=== PATIENT | male | born 1925 | race Caucasian/White ===

== ENCOUNTER 2017-04-10 11:04 | Observation (INO) | payer OTHER ==
--- NOTE | 2017-04-10 11:09 | EDPHY ---
H & P Time Seen by Provider: 04/10/17 11:09 HPI/ROS: CHIEF COMPLAINT: "Not acting right " HISTORY OF PRESENT ILLNESS: History from EMS, they were called because the thought the patient was not "acting right "and had a 1st episode at 7:00 a.m. which was only a few minutes and then a 2nd episode the did not resolve. When they arrived he was slumped over a chair and had decreased responsiveness although the [place] stroke scale was negative. His 1st blood pressure was 80 systolic and he was given IV fluids and his blood pressure came up his mental status resolved. Currently only complains of being a little bit dizzy. REVIEW OF SYSTEMS: Eye: no change in vision ENT: no sore throat Cardiac: no chest pain or syncope Pulmonary: no cough or SOB Abdomen: no vomiting, diarrhea, abdominal pain Musculoskeletal: no back pain or neck pain Skin: no rash Neuro: no headache Constitutional: no fever : no urinary symptoms A comprehensive 10 point review of systems is otherwise negative aside from elements mentioned in the history of present illness. PAST MEDICAL HISTORY: Atrial fibrillation, hypertension, bypass graft surgery Social history: Daily alcohol, denies tobacco, General Appearance: Alert and conversant, cooperative. Eyes: No scleral icterus. Extraocular motion intact, pupils reactive. ENT, Mouth: No tongue laceration or abrasion. Respiratory: Normal respiratory effort, breath sounds equal, lungs are clear to auscultation. Cardiovascular: Irregular rate and rhythm. Gastrointestinal: Abdomen is soft and non tender. Neurological: Alert, face symmetric, normal motor and sensory in extremities. He can lift each leg independently off the bed, no pronator drift, normal finger -to-nose bilaterally. Speech fluent. Skin: Warm and dry, no rashes. Musculoskeletal: No peripheral edema. Psychiatric: Not agitated. Emergency Department course/MDM: Paramedics report hypotension and mental status resolving with increased blood pressure. He does not have focal neurologic exam now. More likely to be hypotension related syncope at home an acute stroke seizure or other primary neurologic cause. Noncontrast head CT, labs to include troponin chemistries, EKG. 1245: Results discussed with patient and family, is currently asymptomatic, the says he is anticoagulated on Eliquis so no aspirin. Admission for syncope and elevated troponin. The at this time also tells me that he had a 3rd episode last night as well. Constitutional: Initial Vital Signs Temperature (C) 36.6 C 04/10/17 11:06 Heart Rate 80 04/10/17 11:06 Respiratory Rate 20 04/10/17 11:06 Blood Pressure 116/67 04/10/17 11:06 O2 Sat (%) 90 L 04/10/17 11:06 O2 Delivery Mode Nasal Cannula O2 (L/minute) 2 Allergies/Adverse Reactions: No Known Allergies Allergy (Verified 04/10/17 11:17) Home Medications: Medication Instructions Recorded Aspirin [Aspirin 81mg] 81 mg PO DAILY 06/10/10 Lipitor 40mg 06/10/10 Metoprolol Succinate Xr [Toprol Xl] 25 mg PO DAILY 06/10/10 Oxybutynin Chloride [Ditropan] mg PO 06/10/10 Ramipril [Altace] mg PO DAILY 06/10/10 amLODIPine BESYLATE [Norvasc 5mg] 5 mg PO DAILY 06/10/10 Atorvastatin Calcium 04/10/17 Hydroxyurea 04/10/17 LYRICA 04/10/17 Tamsulosin HCl 04/10/17 Medical Decision Making - Diagnostics EKG Interpretation: 12-lead EKG interpreted by me; official reading is in trace master. My interpretation is atrial fibrillation rate 80 with right bundle branch block. Imaging Results: Imaging Impressions Head CT 04/10/17 11:18 Impression: Advanced senescent features, with no acute intracranial abnormality identified on this unenhanced CT evaluation. If there is further clinical concern regarding the patient's symptoms, MR imaging is suggested, if not otherwise contraindicated. Findings were discussed with JOSSELYN WILSON MD at 11:50, on 04/10/2017. Differential Diagnosis: Differential diagnosis considered for altered mental status including but not limited to hypoglycemia, infectious process, electrolyte abnormality, head injury and intoxicants. Consult/Admit Bed Type: [place] [address] - Data Points Laboratory Results: Laboratory Results 04/10/17 11:05 04/10/17 11:05 04/10/17 04/10/17 11:05 11:05 WBC 6.85 10^3/uL 10^3/uL (3.80-9.50) RBC 3.49 10^6/uL L 10^6/uL (4.40-6.38) Hgb 12.8 g/dL L g/dL (13.7-17.5) Hct 36.7 % L % (40.0-51.0) MCV 105.2 fL H fL (81.5-99.8) MCH 36.7 pg H pg (27.9-34.1) MCHC 34.9 g/dL g/dL (32.4-36.7) RDW 15.4 % H % (11.5-15.2) Plt Count 403 10^3/uL H 10^3/uL (150-400) MPV 11.1 fL fL (8.7-11.7) Neut % (Auto) 68.6 % % (39.3-74.2) Lymph % (Auto) 15.5 % % (15.0-45.0) [place] % (Auto) 13.7 % H % (4.5-13.0) Eos % (Auto) 0.6 % % (0.6-7.6) Baso % (Auto) 1.3 % % (0.3-1.7) Nucleat RBC Rel Count 0.0 % % (0.0-0.2) Absolute Neuts (auto) 4.70 10^3/uL 10^3/uL (1.70-6.50) Absolute Lymphs (auto) 1.06 10^3/uL 10^3/uL (1.00-3.00) Absolute Monos (auto) 0.94 10^3/uL H 10^3/uL (0.30-0.80) Absolute Eos (auto) 0.04 10^3/uL 10^3/uL (0.03-0.40) Absolute Basos (auto) 0.09 10^3/uL 10^3/uL (0.02-0.10) Absolute Nucleated RBC 0.00 10^3/uL 10^3/uL (0-0.01) Immature Gran % 0.3 % % (0.0-1.1) Immature Gran # 0.02 10^3/uL 10^3/uL (0.00-0.10) Sodium 141 mEq/L mEq/L (134-144) Potassium 4.0 mEq/L mEq/L (3.5-5.2) Chloride 102 mEq/L mEq/L (97-110) Carbon Dioxide 25 mEq/l mEq/l (22-31) Anion Gap 14 mEq/L mEq/L (8-16) BUN 18 mg/dL mg/dL (7-23) Creatinine 1.1 mg/dL mg/dL (0.7-1.3) Estimated GFR > 60 Glucose 172 mg/dL H mg/dL (70-100) Calcium 9.5 mg/dL mg/dL (8.5-10.4) Troponin I 0.075 ng/mL H ng/mL (0.000-0.034) Departure - Departure Disposition: [facility] Inpatient Acute Clinical Impression: Syncope, Troponin level elevated Condition: Good Referrals: Patient,NotPresent [Unknown] - As per Instructions
[2017-04-10 11:30] LABS: PLATELET COUNT 403 10^3/uL (150-400)
[2017-04-10] MEDS ORDERED: ONDANSETRON DISINTEGRATING 4 MG TAB PO PRN (13:20)
[2017-04-10] MEDS ORDERED: ONDANSETRON 4 MG/2 ML VIAL IVP PRN (13:20)
[2017-04-10] MEDS ORDERED: ACETAMINOPHEN 325 MG TAB PO PRN (13:20)
[2017-04-10] MEDS ORDERED: NS 500 ML IV ONE ×2 (13:20→16:58)
--- NOTE | 2017-04-10 13:40 | CPEKG ---
Heart Rate: 80 RR Interval: 750 QRSD Interval: 182 QT Interval: 444 QTC Interval: 513 QRS [place]: 84 T Wave [place]: -51 EKG Severity - ABNORMAL ECG - EKG Impression: ATRIAL FIBRILLATION, V-RATE 61-99 EKG Impression: RIGHT BUNDLE BRANCH BLOCK Electronically Signed By: Mauricio Lundberg 10-Apr-2017 14:21:38
--- NOTE | 2017-04-10 15:53 | GHP ---
[f rep st] HISTORY AND PHYSICAL DATE OF ADMISSION: 04/10/2017 CHIEF COMPLAINT: Gait instability and lightheadedness, and per family not functioning well. HISTORY OF PRESENT ILLNESS: An 89-year-old male with a history of coronary artery disease status pos t CABG, as well as atrial fibrillation on anticoagulation who presents after two episodes of stumblin g ,unstable gait requiring himself to brace himself for stabilize himself on the wall. Fist episode occurred the evening prior to presentation. The patient was able to stabilize himself and then descr ibes that the symptoms of weakness and instability did resolve. The patient went to sleep, had a norm al night sleep, woke up in the morning feeling quite well and then while sitting at the breakfast tab le, david to head out of the room and had another episode of gait instability requiring himself to sta bilize himself. During this episode, his notes that he was behaving and speaking unusually, ther efore, called for EMS and evaluation. The patient denies any preceding chest pain, palpitations, shor tness of breath, headache, vision changes. Has had upper respiratory symptoms that have included a c ough and congestion. Denies any nausea, vomiting, abdominal pain, changes in his bowel habits, dysuri a, hematuria. Has chronic lower extremity edema which he reports has been unchanged. Denies any numbn ess, tingling or focal neurologic deficits. The patient was transported by EMS and noted to be marke dly hypotensive en route with systolic blood pressures in the 80s. At this time, as not appropriately responsive to external stimulation. His mentation improved after fluid resuscitation. PAST MEDICAL HISTORY: 1. Coronary artery disease status post coronary artery bypass grafting x5. 2. History of transient ischemic attack. 3. Atrial fibrillation, on anticoagulation. 4. 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 5. Alcohol abuse. 6. Hypertension. 7. Benign prostatic hypertrophy. 8. Hyperlipidemia. SOCIAL HISTORY: Negative for tobacco, he has a remote history. Negative for marijuana or illicit linda gs. Alcohol intake he reports is a 6-pack of beers a day. They typically begin at lunch. Social his tory is positive for cerebral vascular disease and heart disease. ADVANCED DIRECTIVES: The patient is full cor, full tube. His would be his medical decision-kristen er. REVIEW OF SYSTEMS: A 10-point review of systems is negative with the exception of that reported in t he HPI. PHYSICAL EXAMINATION: VITAL SIGNS: Blood pressure is 116/67, heart rate 80, respiratory rate 20, 90 % on room air, 36.6. GENERAL: This is an elderly appearing male in no acute distress. HEENT: Nota ble for dry mucous membranes. Eye exam is negative for any icterus. CARDIAC: Heart sounds are dist ant and irregular. No clearly audible murmurs on my examination. PULMONARY: Good respiratory effort . Clear to auscultation bilaterally. GASTROINTESTINAL: Positive bowel sounds. ABDOMEN: Soft. MUSC ULOSKELETAL: The patient has trace symmetric lower extremity edema. SKIN: Exam is negative for any rashes. NEUROLOGIC: He is alert and oriented x3. PSYCHIATRIC: He is pleasant and cooperative on int erview and examination. DATA: White count 6.8, hematocrit 36.7, slightly below recent baseline. MCV 105. Platelets of 403. Creatinine 1.1. Sodium of141. Troponin is 0.075. EKG, which I personally reviewed and interpreted, shows atrial fibrillation with right bundle branch block morphology. No acute ST-T changes. Chest x-ray, which I personally reviewed and interpreted, shows cardiomegaly with prominent lung ivelisse ings. No clear infiltrates or edema. ASSESSMENT AND PLAN: This is an 89-year-old male, presenting with presyncope. 1. Presyncope. Suspect based on history, the patient's symptoms are related to dehydration. On revi ew of his fluid intake, it sounds as if the patient drinks coffee all morning and beer all afternoon and evening with no other fluids in between. The patient has had a recent upper respiratory infection and potentially increase in sensible losses. My suspicion for acute myocardial infarction or cardia c dysrhythmia is low at this time. Will admit the patient to telemetry ,check an echocardiogram to v erify that his ejection fraction has not changed and fluid resuscitation with normal saline. Will ho ld the patient's blood pressure medications overnight until we feel he has been adequately hydrated. 2. Indeterminate troponin. Patient has extensive cardiac history without active chest pain or keith rning EKG. Will recheck a troponin this afternoon to verify that it is not rising. Again, will be sis cking a transthoracic echocardiogram to look for any new segmental wall motion abnormalities in mitesh miguel to his echocardiogram in clinic in 2013. 3. Alcohol abuse. The patient drinks heavily on a daily basis and it sounds like this may even be c utting back from previous. We did discuss the importance of moderation in alcohol intake. The patient does not have any intention of quitting drinking at this time. Will write him for a beer this [place] to avoid any alcohol withdrawal. 4. Macrocytic anemia. This does appear to be progressive over time. Suspect this may be related to his alcohol intake. He has had B12 checked in the past. I will not work this up further at this critical access hospital. The patient is noted however to have n elevated RDW. Will add iron studies to his admission labs. 5. Thrombocytosis. I suspect that this is likely why the patient is on hydroxyurea. The family can only describe that he has a sticky blood condition. The patient is followed in the outpatient setting by Dr. Ruano. Will continue the hydroxyurea at outpatient dosing. 6. Atrial fibrillation. This does not appear to be a new diagnosis for this patient and I can only assume this is why he is on anticoagulation. Will continue his Eliquis for now. He is currently rate controlled on his home dosing of metoprolol. 7. Prophylaxis. Patient is on Eliquis. DIET: Cardiac. DISPOSITION: I expect less than 2 midnights if the patient responds well to fluid resuscitation and rules out. I have discussed the case with the emergency room physician. Patient will be triaged to the medical-surgical floor for care. /[id number]/MODL
--- NOTE | 2017-04-10 16:55 | ECHO ---
[email or web address] [address] [address] Main: [phone] Fax: [email or web address] Echocardiogram Name: MARIJA ESCAMILLA MR#: [id number] Study Date: 04/10/2017 Study Time: 03:35 PM Date of : 1925 Age: 89 year(s) Height: 180.3 cm (71 in.) Weight: 89.81 kg (198 lb.) BSA: 2.1 m2 Gender: Male Examination: Echo Indication: Pre syncope/hx CABG/a fib/HTN Image Quality: Contrast: Requested by: Patsy Garcia BP: 114 mmHg/67 mmHg Heart Rate: Rhythm: Indication: Pre syncope/hx CABG/a fib/HTN Procedure Staff Railroad Car Cleaner: Mili Kraus Reading Physician: James Rodríguez Requesting Provider: Conclusions: Mildly dilated left ventricle. The ejection fraction is estimated to be 45 - 50 %. LV septal wall is consistent with a conduction abnormality. LV inferior/inferolateral martin appear hypokinteic. . Mildly dilated right ventricle. Mild mitral annular calcification. Mild to moderate mitral regurgitation. The aortic valve is tri-leaflet. Moderate aortic cusp calcification is present. Mild aortic valve regurgitation is present. The pulmonary artery pressure is mildly increased. Measurements: Chambers Valvular Assessment AV/MV Valvular Assessment TV/PV Normal Normal Normal Name Value Range Name Value Range Name Value Range IVSd (2D): 1.4 cm (0.6 cm-1.1 AV Vmax: 1.65 m/s (1 m/s-1.7 TR Vmax: 3.04 mm/s ( - ) cm) m/s) TR PGmax: 37 mmHg ( - ) LVDd (2D): 6.3 cm (4.2 cm-5.9 AV maxP mmHg ( - ) syst. PAP: 47 mmHg ( - ) cm) AR (PHT): 1066 ms ( - ) LVDs (2D): 4.7 cm (2.1 cm-4 MV E Vmax: 1.07 m/s ( - ) cm) MV A Vmax: 0.25 m/s ( - ) LVPWd (2D): 0.8 cm (0.6 cm-1 MV E/A: 4.28 ( - ) cm) LVEF (2D): 48 (>=54 %) EF Range: 45 - 50 % RVDd(2D): 4.5 cm (1.9 cm-3.8 cmmm) Continued Measurements: Patient: MARIJA ESCAMILLA Study Date: 04/10/2017 Page 1 of 2 03:35 PM Chambers Valvular Assessment AV/MV Valvular Assessment TV/PV Name Value Name Value Name Value LADs: 4.3 cm MV E' Septal: 0.08 m/s CVP (est.): 10 mmHg LADs Lon.7 cm MV E/E' Septal: 14.10 LA Area: 31.5 cm2 MV E/E' Lateral: 10.50 AR Vmax: 3.87 cm/s Additional Vessels Name Value Ao Ascendin.8 cm Findings: Left Ventricle: Mildly dilated left ventricle. No LV hypertrophy. Normal global systolic LV function. The ejection fraction is estimated to be 45 - 50 %. No regional wall motion abnormality. Normal diastolic LV function. LV septal wall is consistent with a conduction abnormality. LV inferior/inferolateral martin appear hypokinteic. . Right Ventricle: Mildly dilated right ventricle. Left Atrium: The left atrium is moderately dilated. Right Atrium: The right atrium is severely dilated. Mitral Valve: Mild mitral annular calcification. Mild to moderate mitral regurgitation. Aortic Valve: The aortic valve is tri-leaflet. CA+. Moderate aortic cusp calcification is present. Mild aortic valve regurgitation is present. Tricuspid Valve: The tricuspid valve is normal in appearance and function. Mild tricuspid regurgitation is present. The pulmonary artery pressure is mildly increased. Pulmonic Valve: The pulmonic valve is normal in appearance and function. Mild pulmonic valve regurgitation is noted. Aorta: The aorta is normal. Pericardium: No pericardial effusion. (No Signature Object) Patient: MARIJA ESCAMILLA Study Date: 04/10/2017 Page 2 of 2 03:35 PM [id number]
[2017-04-10] MEDS: IPRATROPIUM/ALBUTEROL 3 ML DEYVIAL IH SCH (17:17)
[2017-04-10] MEDS ORDERED: BEER 1 EACH EA PO SCH (19:00)
[2017-04-10] MEDS: APIXABAN 5 MG TAB PO SCH (20:06)
[2017-04-10] MEDS: HYDROXYUREA 500 MG CAP PO SCH (20:06)
[2017-04-10] MEDS ORDERED: BENZONATATE 100 MG CAP PO PRN (23:29)
[2017-04-10] MEDS ORDERED: GUAIFENESIN/DM 10 ML UDCUP PO PRN (23:29)
[2017-04-11] MEDS: IPRATROPIUM/ALBUTEROL 3 ML DEYVIAL IH SCH ×2 (00:13→05:32)
[2017-04-11 04:35] LABS: PLATELET COUNT 318 10^3/uL (150-400)
[2017-04-11 07:49] VITALS: BP 117/71; RESP 13; TEMP 97.5; O2SAT 91
[2017-04-11] MEDS: APIXABAN 5 MG TAB PO SCH (08:59)
[2017-04-11] MEDS ORDERED: ATORVASTATIN CALCIUM 40 MG TAB PO SCH (09:00)
[2017-04-11] MEDS ORDERED: OXYBUTYNIN 5 MG EXT REL TAB PO SCH (09:00)
[2017-04-11] MEDS ORDERED: ENOXAPARIN 30 MG/0.3 ML SYR SC SCH (09:00)
[2017-04-11] MEDS ORDERED: PREGABALIN 50 MG CAP PO SCH (09:00)
[2017-04-11] MEDS ORDERED: OXYBUTYNIN CHLORIDE 15 MG PO SCH (09:00)
[2017-04-11] MEDS ORDERED: TAMSULOSIN HCL 0.4 MG CAP PO SCH (09:00)
[2017-04-11] MEDS: HYDROXYUREA 500 MG CAP PO SCH (09:00)
--- NOTE | 2017-04-11 09:24 | HOSPPROG ---
Hospitalist Progress Note Assessment/Plan: #RSV URI: supportive care. Stable on RA #Indeterminate troponin: suspect due to acute illness. Denies CP. TTE shows EF 45%, no WMA; no significant change since ec2013 #CAD: s/p 5V CABG #Presyncope: due to dehydration, acute illness. No significant changes on TTE/ #Permanent a fib: followed by Dr. Diaz. Arya #Etoh dependence: no signs of w/d #Disp: DC today Subjective: no CP or SOB. No dizziness Objective: Vital Signs Temp Pulse Resp BP Pulse Ox 36.4 C 100 13 117/71 91 L 04/11/17 07:48 04/11/17 07:48 04/11/17 07:48 04/11/17 07:48 04/11/17 07:48 Laboratory Results 04/11/17 04:05 04/11/17 04:05 04/10/17 04/11/17 04/12/17 05:59 05:59 05:59 Intake Total 1570 Output Total 225 Balance 1345 - Physical Exam Constitutional: no apparent distress Eyes: PERRL Ears, Nose, Mouth, Throat: moist mucous membranes Cardiovascular: regular rate and rhythym, No edema Respiratory: expiratory wheeze Gastrointestinal: normoactive bowel sounds, soft, non-tender abdomen Genitourinary: no bladder fullness Musculoskeletal: full muscle strength Neurologic: AAOx3, CN II-XII Intact Psychiatric: interacting appropriately ICD10 Worksheet Patient Problems: Problems Problem Status Onset Syncope Acute Troponin level elevated Acute
--- NOTE | 2017-04-11 10:22 | GDS ---
[f rep st] DISCHARGE SUMMARY CHIEF COMPLAINT: 1. Gait instability like presyncope. 2. RSV upper respiratory infection. 3. History of CAD s/p CABG 5-vessel. 4. History of transient ischemic attack. 5. Permanent atrial fibrillation 6. Essential thrombocytosis. 7. Alcohol abuse. 8. Hypertension,. 9. Benign prostatic hyperplasia. 10. Hyperlipidemia. HISTORY OF PRESENT ILLNESS: An 89-year-old male with history of coronary disease status post 5 vessel CABG, permanent atrial fibrillation on JOSEPH, presenting with 2 episodes of stumbling, unstable gait, required himself to brace himself to prevent a fall. First episode occurred the evening prior to presentation. He felt very weak and unstable, but did not fall. He went to sleep without any issues and felt quite well, but then at breakfast he stood up to walk out the room and had another episode of gait instability. He denied any preceding chest pain, palpitations, shortness of breath, headaches, vision changes. He has had a dry cough and congestion. No nausea, vomiting, diarrhea. HOSPITAL COURSE BY PROBLEM: 1. Acute RSV URI: He is stable on room air. Recommend supportive care with plenty of fluids, cough suppressant. 2. Presyncope: Likely secondary to acute illness and mild dehydration. He was rehydrated here. He had a mild indeterminate troponin, but echocardiogram was unchanged from 2014 with an EF of 45%-50%. No wall motion abnormalities. We will not pursue further cardiac evaluation at this time. 3. Alcohol abuse: He was provided alcohol with meals. 4. Macrocytic anemia: Likely secondary to chronic alcohol use. He is counseled on cessation. 5. Thrombocytosis: Likely essential given the fact that he is on hydroxy urea. He is followed by Dr. Ruano and will continue this. 6. Permanent atrial fibrillation: He is in normal sinus rhythm. He is on Eliquis. 7. Decondition/unstable gait: This is likely secondary to acute illness and dehydration. He has been evaluated by PT and OT who recommend he use his walker 29/10 at home. DISPOSITION: Patient is stable for discharge home. His son will be staying with him for the next couple days. He is advised to use his walker and cane. MEDICATIONS: No new medications. FOLLOW UP: 1. PCP. 2. Cardiology. /[id number]/MODL MTDD
[2017-04-11 10:33] VITALS: PULSE 107
--- NOTE | 2017-04-11 15:27 | ASDISCHSUM ---
Discharge Information Plan Status:Home with No Needs Medically Cleared to Leave:04/10/2017 Discharge Date:04/11/2017 10:45 AM CM D/C Disposition: ADT D/C Disposition:Home, Routine, Self-Care Projected Discharge Date:04/11/2017 12:00 AM Transportation at D/C: Discharge Delay Reason: Follow-Up Date:04/11/2017 12:00 AM Discharge Slot: Final Diagnosis: Placement Information Patient Contact Information Contact Name:JEISON Relationship: Address:[address] Work Phone: City:[place] Alternate Phone: State/Zip Code:[place] [address] Email: Financial Information Financial Class: Primary Plan Desc:MEDICARE OUTPATIENT Primary Plan Number:[id number] Secondary Plan Desc:[facility] Secondary Plan Number:[id number] Assessment Information LACE LACE Acuity / Level of Care Answers: Was the patient admitted to hospital via the emergency department? Yes: Emergency dept visits in Answers: 1 last 6 months Score: 4 Date Signed: 04/10/2017 01:25 PM Electronically Signed By:Robyn Julio RN Intervention Information Intervention Type:*Condition Code 44 Date of Service:04/11/2017 03:17 PM Patient Type:Observation Staff Member:ESDRAS Haro Susan Hours: Discipline: Severity: Comment:
== END 2017-04-11 10:45 | disposition home or self-care (01) ==
LOC: EDUNIT# → INTOOBSV 12:44 → OBSVTOIN 12:44 → F2W 14:24
PROVIDERS: ADMIT Hospitalist; ATTEND Internal Medicine
DX: R55 Syncope and collapse (principal); R26.89 Other abnormalities of gait and mobility; J06.9 Acute upper respiratory infection, unspecified; B97.4 Respiratory syncytial virus as the cause of diseases classified elsewhere; E86.0 Dehydration; D53.9 Nutritional anemia, unspecified; I25.2 Old myocardial infarction; I48.2 Chronic atrial fibrillation; D47.3 Essential (hemorrhagic) thrombocythemia; I10 Essential (primary) hypertension; F10.20 Alcohol dependence, uncomplicated; N40.0 Benign prostatic hyperplasia without lower urinary tract symptoms; E78.5 Hyperlipidemia, unspecified; Z95.1 Presence of aortocoronary bypass graft; Z79.01 Long term (current) use of anticoagulants; Z86.73 Personal history of transient ischemic attack (TIA), and cerebral infarction without residual deficits
CPT/HCPCS: 70450; 71046; 93005; 93306; 97161; 97165; 97535; 99285; G0378; G8978; G8979; G8987; G8988; G8989; G0480

== ENCOUNTER 2017-06-14 01:22 | Observation (INO) | payer OTHER ==
[2017-06-14] MEDS ORDERED: ONDANSETRON 4 MG/2 ML VIAL IVP ONE (01:28)
--- NOTE | 2017-06-14 01:31 | EDPHY ---
H & P HPI/ROS: HPI CHIEF COMPLAINT: Epigastric abdominal pain HISTORY OF PRESENT ILLNESS: Patient is a 89-year-old male, resides locally in a private residence with his , called 911 because approximately an hour and half ago he developed pain in his abdomen. And chest. The pain is located epigastric region. Radiates out into his abdomen and chest. Denies shortness of breath. Pain is reproducible on exam when you press in his epigastric region. Of note he somewhat of a poor historian. He thinks the pain started an hour and half ago. He has not had any vomiting. Denies nausea. Denies shortness of breath. Denies lower abdominal pain. Currently rates his pain is 7/10. He received full-dose aspirin and 1 dose of nitroglycerin prior to arrival. Past Medical History: Coronary disease with CABG 5 vessel, TIA, AFib, alcohol abuse, hyperlipidemia, RSV, gait instability, BPH Past Surgical History: CABG Social History: Occasional alcohol use. Denies illicit drugs or tobacco. Family History: Noncontributory. ROS REVIEW OF SYSTEMS: A comprehensive 10 point review of systems is otherwise negative aside from elements mentioned in the history of present illness. Exam Constitutional appears elderly, frail, triage nursing summary reviewed, vital signs reviewed, awake/alert. Eyes normal conjunctivae and sclera, EOMI, PERRLA. HENT normal inspection, atraumatic, moist mucus membranes, no epistaxis, neck supple/ no meningismus, no raccoon eyes. Respiratory clear to auscultation bilaterally, normal breath sounds, no respiratory distress, no wheezing. Cardiovascular rate normal, regular rhythm, no murmur, no edema, distal pulses normal. Gastrointestinal tender palpation epigastric region, no peritoneal signs, no rebound, no guarding, normal bowel sounds, no distension, no pulsatile mass. Genitourinary no CVA tenderness. Musculoskeletal bilateral lower extremity pitting edema no midline vertebral tenderness, full range of motion, no calf swelling, no tenderness of extremities , no meningismus, good pulses, neurovascularly intact. Skin pink, warm, & dry, no rash, skin atraumatic. Neurologic awake, alert and oriented x 3, AAOx3, moves all 4 extremities equally, motor intact, sensory intact, CN II-XII intact, normal cerebellar, normal vision, normal speech. Psychiatric normal mood/affect. Heme/Lymph/Immune no lymphadenopathy. Differential diagnosis includes but is not limited to and in no particular order : Bowel obstruction, appendicitis, gallbladder disease, diverticulitis, colitis , enteritis, perforated viscus, gastritis, GERD, esophagitis, urinary tract infection, pyelonephritis, kidney stones Medical Decision Making: Plan for this patient IV establishment, check basic blood work including lactic acid, lipase, LFTs, CBC, proceed with EKG, full it program manager, chest x-ray, most likely need to CT scan abdomen pelvis with IV contrast. Re-evaluation: EKG interpretation by me on record in [facility] system. Impression time of EKG 1:33 a.m., this is atrial fib rate of 66, no ST elevation. No significant ST depression. Subtle T-wave abnormality V2 to 3 AVF. Chest x-ray one view reviewed by me. Cardiomegaly significant, trace bilateral pleural effusions, pulmonary edema present. CABG sternotomy stars in place. 0242: Blood work reviewed elevated lipase at 10,000. Additionally elevated BNP. I have not given this patient any fluids as he has significant cardiomegaly on his x-ray, and pulmonary edema pulmonary vascular congestion with peripheral edema concerning for CHF. Patient's pain at this time control [address] scan abdomen pelvis with IV contrast is pending at this time. I have asked the hospitalist service Dr. Capellan to admit for acute pancreatitis. 0258: CT scan abdomen pelvis with IV contrast called to me by Dr. Billings. No evidence of acute intra-abdominal pathology. Specifically no evidence of significant pancreatitis. Cardiomegaly present, pleural effusions present. Source: Patient, EMS Exam Limitations: Clinical condition - Medical/Surgical History Hx Asthma: No Hx Chronic Respiratory Disease: No Hx Diabetes: No Hx Cardiac Disease: Yes Hx Renal Disease: No Hx Cirrhosis: No Hx Alcoholism: No Hx HIV/AIDS: No Hx Splenectomy or Spleen Trauma: No Other PMH: CABG x 5, TIA, Knees replaced, HTN, Hyperlipidemia, Atrial fibrillation - Social History Smoking Status: Former smoker Constitutional: Initial Vital Signs Temperature (C) 36.7 C 06/14/17 01:30 Heart Rate 81 06/14/17 01:30 Respiratory Rate 22 H 06/14/17 01:30 Blood Pressure 153/75 H 06/14/17 01:30 O2 Sat (%) 92 06/14/17 01:30 O2 Delivery Mode Room Air Allergies/Adverse Reactions: No Known Allergies Allergy (Verified 06/14/17 02:06) Home Medications: Medication Instructions Recorded Apixaban [Eliquis] 5 mg PO BID 04/10/17 Atorvastatin Calcium [Lipitor 40 40 mg PO DAILY 04/10/17 mg (*)] Hydroxyurea [Hydrea 500 mg (*)] 500 mg PO BID 04/10/17 Metoprolol Tartrate [Lopressor 25 12.5 mg PO DAILY 04/10/17 mg (*)] Nitroglycerin [Nitrostat 0.4 mg 0.4 mg SL Q5M PRN 04/10/17 (*)] Oxybutynin Chloride Xl [Ditropan 5 mg PO DAILY 04/10/17 Xl 5mg (*)] Oxybutynin Chloride [OXYBUTYNIN 15 mg PO DAILY 04/10/17 CHLORIDE ER] Pregabalin [Lyrica 50mg (*)] 50 mg PO DAILY 04/10/17 Ramipril [Altace 5mg (*)] 10 mg PO BID 04/10/17 Tamsulosin HCl [Flomax 0.4 MG (*)] 0.4 mg PO DAILY 04/10/17 amLODIPine BESYLATE [Norvasc 5 mg 5 mg PO DAILY 04/10/17 (*)] Medical Decision Making - Data Points Laboratory Results: Laboratory Results 06/14/17 01:20 06/14/17 01:20 06/14/17 06/14/17 06/14/17 01:43 01:43 01:20 WBC RBC Hgb Hct MCV MCH MCHC RDW Plt Count MPV Neut % (Auto) Lymph % (Auto) Cass % (Auto) Eos % (Auto) Baso % (Auto) Nucleat RBC Rel Count Absolute Neuts (auto) Absolute Lymphs (auto) Absolute Monos (auto) Absolute Eos (auto) Absolute Basos (auto) Absolute Nucleated RBC Immature Gran % Immature Gran # PT 19.2 SEC H SEC (12.0-15.0) INR 1.60 H (0.83-1.16) APTT 34.5 SEC SEC (23.0-38.0) D-Dimer 1.01 ug/mLFEU H ug/mLFEU (0.00-0.50) VBG Lactic Acid 1.4 mmol/L mmol/L (0.7-2.1) Sodium Potassium Chloride Carbon Dioxide Anion Gap BUN Creatinine Estimated GFR Glucose Calcium Magnesium Total Bilirubin Conjugated Bilirubin Unconjugated Bilirubin AST ALT Alkaline Phosphatase Creatine Kinase CK-MB (CK-2) Fraction Troponin I NT-Pro-B Natriuret Pep Total Protein Albumin Lipase Ethyl Alcohol < 10 mg/dL mg/dL (0-10) 06/14/17 06/14/17 01:20 01:20 WBC 6.95 10^3/uL 10^3/uL (3.80-9.50) RBC 3.44 10^6/uL L 10^6/uL (4.40-6.38) Hgb 11.7 g/dL L g/dL (13.7-17.5) Hct 36.1 % L % (40.0-51.0) MCV 104.9 fL H fL (81.5-99.8) MCH 34.0 pg pg (27.9-34.1) MCHC 32.4 g/dL g/dL (32.4-36.7) RDW 18.3 % H % (11.5-15.2) Plt Count 546 10^3/uL H 10^3/uL (150-400) MPV 11.2 fL fL (8.7-11.7) Neut % (Auto) 59.0 % % (39.3-74.2) Lymph % (Auto) 24.6 % % (15.0-45.0) Cass % (Auto) 11.1 % % (4.5-13.0) Eos % (Auto) 2.6 % % (0.6-7.6) Baso % (Auto) 2.4 % H % (0.3-1.7) Nucleat RBC Rel Count 0.3 % H % (0.0-0.2) Absolute Neuts (auto) 4.10 10^3/uL 10^3/uL (1.70-6.50) Absolute Lymphs (auto) 1.71 10^3/uL 10^3/uL (1.00-3.00) Absolute Monos (auto) 0.77 10^3/uL 10^3/uL (0.30-0.80) Absolute Eos (auto) 0.18 10^3/uL 10^3/uL (0.03-0.40) Absolute Basos (auto) 0.17 10^3/uL H 10^3/uL (0.02-0.10) Absolute Nucleated RBC 0.02 10^3/uL H 10^3/uL (0-0.01) Immature Gran % 0.3 % % (0.0-1.1) Immature Gran # 0.02 10^3/uL 10^3/uL (0.00-0.10) PT INR APTT D-Dimer VBG Lactic Acid Sodium 146 mEq/L H mEq/L (135-145) Potassium 4.5 mEq/L mEq/L (3.5-5.2) Chloride 106 mEq/L mEq/L (97-110) Carbon Dioxide 27 mEq/l mEq/l (22-31) Anion Gap 13 mEq/L mEq/L (8-16) BUN 24 mg/dL H mg/dL (7-23) Creatinine 0.9 mg/dL mg/dL (0.7-1.3) Estimated GFR > 60 Glucose 118 mg/dL H mg/dL (70-100) Calcium 10.0 mg/dL mg/dL (8.5-10.4) Magnesium 1.9 mg/dL mg/dL (1.6-2.3) Total Bilirubin 1.6 mg/dL H mg/dL (0.1-1.4) Conjugated Bilirubin 0.7 mg/dL H mg/dL (0.0-0.5) Unconjugated Bilirubin 0.9 mg/dL mg/dL (0.0-1.1) AST 57 IU/L IU/L (17-59) ALT 45 IU/L IU/L (21-72) Alkaline Phosphatase 88 IU/L IU/L (38-126) Creatine Kinase 57 IU/L IU/L (0-224) CK-MB (CK-2) Fraction 2.63 ng/mL ng/mL (0.00-3.19) Troponin I < 0.012 ng/mL ng/mL (0.000-0.034) NT-Pro-B Natriuret Pep 2240 pg/mL H pg/mL (0-450) Total Protein 6.8 g/dL g/dL (6.3-8.2) Albumin 4.2 g/dL g/dL (3.5-5.0) Lipase 07189 IU/L H IU/L (23-300) Ethyl Alcohol Medications Given: Discontinued Medications Morphine Sulfate (Morphine) 4 mg IVP EDNOW ONE Stop: 06/14/17 01:29 Last Admin: 06/14/17 01:37 Dose: 4 mg Ondansetron HCl (Zofran) 4 mg IVP EDNOW ONE Stop: 06/14/17 01:29 Last Admin: 06/14/17 01:37 Dose: 4 mg Departure - Departure Disposition: [facility] Inpatient Acute Clinical Impression: CHF (congestive heart failure) Qualifiers: Heart failure type: other Qualified Code(s): I50.9 - Heart failure, unspecified Pancreatitis Qualifiers: Chronicity: acute Pancreatitis type: other Acute pancreatitis complication: unspecified Qualified Code(s): K85.80 - Other acute pancreatitis without necrosis or infection Condition: Serious
--- NOTE | 2017-06-14 01:35 | CPEKG ---
Heart Rate: 66 RR Interval: 909 QRSD Interval: 134 QT Interval: 460 QTC Interval: 482 QRS [place]: 85 T Wave [place]: -48 EKG Severity - ABNORMAL ECG - EKG Impression: ATRIAL FIBRILLATION EKG Impression: NONSPECIFIC INTRAVENTRICULAR CONDUCTION DELAY EKG Impression: INFERIOR INFARCT, AGE INDETERMINATE Electronically Signed By: Mauricio Lundberg 15-Jun-2017 07:41:01
[2017-06-14 01:44] LABS: PLATELET COUNT 546 10^3/uL (150-400)
[2017-06-14 01:57] LABS: CREATINE KINASE 57 IU/L (0-224)
[2017-06-14 02:01] LABS: INR 1.6 (0.83-1.16); PROTIME(PATIENT) 19.2 SEC (12.0-15.0)
[2017-06-14] MEDS ORDERED: IOPAMIDOL (ISOVUE-300) 100 ML BTL ONE (02:22)
[2017-06-14] MEDS ORDERED: FUROSEMIDE 40 MG/4 ML VIAL IVP ONE (02:43)
[2017-06-14] MEDS ORDERED: HYDROCODONE/APAP 5/325 TAB PO PRN (04:00)
[2017-06-14] MEDS ORDERED: HYDROmorphONE/DILAUDID 2 MG/ML INJ IVP PRN (04:00)
[2017-06-14] MEDS ORDERED: ONDANSETRON 4 MG/2 ML VIAL IVP PRN (04:00)
[2017-06-14] MEDS ORDERED: ACETAMINOPHEN 325 MG TAB PO PRN (04:00)
[2017-06-14] MEDS ORDERED: LORazepam 2 MG/ML INJ IVP PRN (04:09)
[2017-06-14 06:36] LABS: PLATELET COUNT 469 10^3/uL (150-400)
[2017-06-14 07:00] LABS: INR 1.54 (0.83-1.16); PROTIME(PATIENT) 18.6 SEC (12.0-15.0)
[2017-06-14] MEDS ORDERED: NITROGLYCERIN 0.4 MG BTL SL PRN (08:44)
[2017-06-14] MEDS ORDERED: amLODIPine BESYLATE 5 MG TAB PO SCH (09:00)
[2017-06-14] MEDS ORDERED: OXYBUTYNIN CHLORIDE 15 MG PO SCH (09:00)
[2017-06-14] MEDS ORDERED: FUROSEMIDE 40 MG/4 ML VIAL IVP SCH (09:00)
[2017-06-14] MEDS: OXYBUTYNIN 5 MG EXT REL TAB PO SCH (09:29)
[2017-06-14] MEDS: APIXABAN 5 MG TAB PO SCH ×2 (09:29→22:15)
[2017-06-14] MEDS: RAMIPRIL 5 MG CAP PO SCH ×2 (09:29→22:14)
[2017-06-14] MEDS: TAMSULOSIN HCL 0.4 MG CAP PO SCH (09:30)
[2017-06-14] MEDS: HYDROXYUREA 500 MG CAP PO SCH (09:30)
[2017-06-14] MEDS: PREGABALIN 50 MG CAP PO SCH (09:30)
[2017-06-14] MEDS: FOLIC ACID 1 MG TAB PO SCH (09:30)
[2017-06-14] MEDS: ATORVASTATIN CALCIUM 40 MG TAB PO SCH (09:30)
[2017-06-14] MEDS: MULTIVITAMINS 1 EACH TAB PO SCH (09:30)
--- NOTE | 2017-06-14 09:57 | GHP ---
[f rep st] HISTORY AND PHYSICAL DATE OF ADMISSION: 06/14/2017 SOURCE: Patient provides history, is a fair historian. His and grandson are at bedside. EMR w as reviewed and case discussed with ED provider. CHIEF COMPLAINT: Abdominal pain. HISTORY OF PRESENT ILLNESS: This is a very pleasant 89-year-old gentleman with past medical history significant for CAD, with history of CABG, TIA, Afib on apixaban, essential thrombocytosis, alcohol d ependence, benign essential hypertension, BPH, who presents to the emergency department today with co mplaints of sudden onset of epigastric pain, started at approximately 11 p.m. Patient reports that p ain extends bilaterally, it is sharp, constant, associated with nausea, but no vomiting. Patient den ies any fevers or chills. Patient denies any chest pain or palpitations. The patient complains of c hronic cough, which is slightly increased from baseline. He has also noticed over the last 3 or more weeks, increasing lower extremity edema, without any orthopnea. REVIEW OF SYSTEMS: Negative, except as noted above. ALLERGIES: No known drug allergies. HOME MEDICATIONS: Apixaban 5 mg p.o. b.i.d., tamsulosin 0.4 mg p.o. daily, ramipril 10 mg p.o. b.i.d ., Lyrica 50 mg p.o. daily, oxybutynin 20 mg total daily, Nitrostat 0.4 mg sublingual q.5 minutes p.r .n., metoprolol tartrate 12.5 mg p.o. daily. Hydroxyurea 1000 mg p.o. daily, atorvastatin 40 mg p.o. daily, amlodipine 5 mg p.o. daily. PAST MEDICAL HISTORY: Significant for CAD, status post CABG, TIA, Afib on apixaban, essential thromb ocytosis, alcohol abuse, benign essential hypertension, BPH, hyperlipidemia. PAST SURGICAL HISTORY: CABG, 5 vessel graft. FAMILY HISTORY: Children are healthy. The patient does not recall additional family member history. SOCIAL HISTORY: Patient is , lives with , supportive children in town. He denies smoking or using drugs. He does drink alcohol. He was previously drinking a six-pack on a daily basis. Th e patient reports that he is down to just a few beers on a daily basis, but continues to drink daily. CODE STATUS: Full. PHYSICAL EXAMINATION: VITAL SIGNS: Upon arrival to the emergency department, blood pressure 133/75, heart rate is 81, respiratory rate 22, O2 sat is 92% on room air, with temperature 36.7. Vitals abigail ilable at time of interview, blood pressure 118/64, heart rate 64, respiratory rate 20, O2 sat is 93% on 2 L by nasal cannula. GENERAL: No acute distress. Very pleasant, elderly, frail-appearing dilip weber, is lying quietly in bed. His is at bedside. HEAD: Normocephalic, atraumatic. EYES: E xtraocular muscles grossly intact. Pupils equal, round, decreased react to light bilaterally, but sy mmetric. No scleral icterus or conjunctival injection. ENT: Mucous membranes appear moist. No shannan pharyngeal erythema or exudates. Dentition in fair condition. NECK: Supple. Trachea midline. CV: Regular rate and rhythm. Slightly distant heart sounds. No chest wall tenderness to palpation. R ESPIRATORY: Unlabored breathing. Patient with decreased air movement and bibasilarly right greater than left. Occasional posterior wheeze. ABDOMEN: Soft, patient with tenderness to palpation in the epigastric region. Some milder tenderness on the right upper quadrant, but negative Fisher's sign. : No suprapubic tenderness to palpation. No Toscano catheter in place. MUSCULOSKELETAL: Generali zed deconditioning, weakness. Patient is able to sit up independently in bed. Strength overall 5/5 in upper and lower extremities. SKIN: The patient does have ulcerations to his bilateral lower extr emities. On the left bilateral malleolar, ulcerations, and on the posterior right leg, the patient a lso with foot two scabbed ulcerations on posterior foot. NEURO: Grossly nonfocal. Moves all extrem ities. Sits up independently. Cranial nerves intact, symmetric bilaterally. No facial drooping. P SYCH: Thought process, content and questions are appropriate. Patient awake, alert, and oriented x4 . LABORATORY STUDIES: On admission: WBC 6.95, H and H is 11.7, 36.1, platelet count is 546. No bands . PT is 19.2, INR is 1.60, PTT is 34.5. D-dimer is 1.01. Lactic acid 1.4. Sodium 146, potassium 4.5, chloride 106, CO2 27, BUN 29, creatinine is 0.9. GFR greater than 60, glu cose is 118, calcium 10.0, magnesium 1.9. Total bilirubin is 1.6, conjugated 0.7. ALT is 45, AST is 57, alk phos is 88. CK is 57, CK-MB 2.63. Troponin is negative. BTNP is 2240. Total protein 6.8, albumin is 4.2, lipase is 10,942. UA was with 2.0 urobilinogen, otherwise negative. Alcohol level negative. EKG, reviewed myself, showing AFib, rate in the 60s. Intraventricular conduction delay, inferior inf arct, without any acute ST elevations. Chest x-ray, image reviewed myself, report is still pending, showing bilateral pleural effusions, car diomegaly, surgical sternotomy wires. A CT abdomen and pelvis, preliminary report and final report pending. Negative for any acute finding s. Pleural effusions again noted. ASSESSMENT AND PLAN: A pleasant 89-year-old gentleman, who presents to the emergency department with sudden onset of epigastric abdominal pain. 1. Pancreatitis is likely alcoholic in nature. No evidence of obstruction or common bile duct dilat ion on imaging per preliminary report. We will await final read. The patient continues to drink alc ohol, and advised the patient that he needs to quit. Otherwise, he is at risk for recurrence of panc reatitis. This is discussed with his family at bedside. The patient will be made n.p.o. He is not a candidate at this time for any IV fluid hydration secondary to his acute on chronic congestive heart failure status. 2. Acute on chronic systolic congestive heart failure, decompensated. The patient has bilateral ple ural effusions. He has had increasing lower extremity edema for the past 3 weeks by his report. He has not been on any diuretic therapy. Patient did report some Lasix in the emergency department. I will plan to continue this b.i.d. while inpatient. The patient with recent admission in April. An echocardiogram was noted to have an ejection fraction of 40% to 50% with some trace mitral regurgita tion. We will plan to continue diuretic therapy. Consider consultation with Cardiology, if no signi ficant improvement. The patient is followed by Dr. Dimitrios Diaz outpatient. We will monitor H and H closely. 3. History of coronary artery disease status post coronary artery bypass graft. Continue patient's aspirin, nitro, beta nicole and JOSEPH inhibitor. 4. Atrial fibrillation, rate controlled on chronic anticoagulation with apixaban. We will plan to c ontinue. 5. Essential thrombocytosis. Platelet count remains slightly elevated. We will plan to continue to monitor. 6. History of alcohol abuse. Cessation has been advised to the patient, with his family at bedside. He will consider. 7. Benign essential hypertension. Resume patient's JOSEPH, beta-nicole and amlodipine daily. 8. Benign prostatic hypertrophy. Continue Flomax. 9. Hyperlipidemia. Continue statin. 10. Fluid electrolyte nutrition, saline lock IV, electrolytes will be monitored and replaced if need ed. Patient will be made n.p.o. at this time until his abdominal pain has resolved. 11. Bilateral lower extremity wounds present on arrival. Wound Care has been consulted. Patient do es have decreased pedal pulses and suspect some component of vascular disease. The patient denies th at he has had any evaluation or DANNY, but he is unsure. We will further see if we can get a little mo re information from patient's primary cardiac rollway man. 12. Prophylaxis. Sequential compression devices, on apixaban. 13. Code status: Full. DISPOSITION: Patient has been admitted to inpatient status on the PCU floor for acute on chronic CHF , as well as acute pancreatitis. Anticipate the patient will remain in the hospital for greater than 2 midnights. /[id number]/MODL
--- NOTE | 2017-06-14 12:27 | ASMTCASEMG ---
Living Arrangements What is your living Answers: With Spouse arrangement? Who do you live with? Type Of Residence What kind of residence do Answers: House you live in? Discharge Plan Comments Coordination Status Comments Notes: Pts case discussed in morning rounds. Pt is a 89 y/o man admitted for CHF, pancreatitis and abdominal pain. Pt will most likely d/c independent when medically stable. No therapies ordered at this time. Wound care has been consulted. CM available for changes. Plan: Independent Date Signed: 06/14/2017 12:26 PM Electronically Signed By:RNO Cortez
--- NOTE | 2017-06-14 12:36 | ASMTCAGE ---
CAGE Do you feel you ought to Answers: Yes cut down on your drinking or drug use? Do people annoy you by Answers: No criticizing your drinking or drug use? Do you feel guilty about Answers: No your drinking or drug use? Do you drink or use drugs Answers: No first thing in the morning ([employer])? Date Signed: 06/14/2017 12:35 PM Electronically Signed By:RON Cortez
--- NOTE | 2017-06-14 12:54 | HOSPPROG ---
Hospitalist Progress Note Assessment/Plan: Pt admitted this morning #Abdominal pain, questionable pancreatitis with no imaging to support it, Questionable GERD #Hx of Pancreatitis #Dehydration, intravascular depletion #Pleural Effusions, bilateral #Hypoxemia, 3 L O2, reports no baseline supplemental O2 use #Daily ETOH - 2 beers daily #Afib, chronic, not on rate limiting agent #chronic AC: on Eliquis Plan: -Change status to observation -Etiology is unclear. He has mid epigastric tenderness. -Will start CLD -Start PPI -Hold of on Diuretics today. Will likely need to be restarted tomorrow -Hold Amlodipine -unclear why he is not on a rate limiting agent, but HR is overall controlled at this time -Cont Eliquis Subjective: still with mild abdominal pain. no resp issues. Feels ok otherwise. Feels thirsty. Objective: Vital Signs Temp Pulse Resp BP Pulse Ox 36.4 C 62 16 143/73 H 98 06/14/17 11:18 06/14/17 11:18 06/14/17 11:18 06/14/17 11:18 06/14/17 11:18 Laboratory Results 06/14/17 06:23 06/14/17 06:23 06/13/17 06/14/17 06/15/17 05:59 05:59 05:59 Intake Total 1000 Output Total 650 Balance 350 PT 18.6 SEC (12.0-15.0) H 06/14/17 06:23 INR 1.54 (0.83-1.16) H 06/14/17 06:23 - Physical Exam Constitutional: no apparent distress, chronically ill appearing Eyes: PERRL, EOMI Ears, Nose, Mouth, Throat: hearing normal, dry mucous membranes Cardiovascular: regular rate and rhythym, edema (trace LE edema) Respiratory: no respiratory distress, reduced air movement, No clear to auscultation Gastrointestinal: normoactive bowel sounds, tenderness (mid epigastric tenderness) Skin: warm Neurologic: AAOx3 Psychiatric: interacting appropriately, not anxious, not encephalopathic Lymph, Heme, Immunologic: No petechiae ICD10 Worksheet Patient Problems: Problems Problem Status Onset CHF (congestive heart failure) Acute Pancreatitis Acute Syncope Acute Troponin level elevated Acute
--- NOTE | 2017-06-14 14:53 | WOCRNPDOC ---
WOCRN Advanced Assessment Note - Skin Integrity Problem, Advanced Assess Right Posterior Lower Leg Venous Stasis Ulcer Dressing Type: Open to Air Exudate Amount: None Exudate Characteristic(s): None Jessica Wound Tissue: Swollen (+2 pitting edema) Jessica Wound Swelling: Mild Wound Bed Color: Brown, Yellow Wound Bed Constitution: Dried Exudate, Adhered Slough Site Measurement - Head-to-Toe Length X Width X Depth (cm): [id number] Peripheral Edema Location & Description: +2, pitting Skin Integrity Problem Comment: Dried adherent slough noted in wound, w/ no exudate. Periwound skin is intact w/ no erythema. Patient reports wound began about 3 weeks ago, when his lower legs began to swell. There are no venous- related changes in the skin of his lower extremities indicating insufficiency, and the wound is dry, not exudative. He does report wearing compression stockings at home. Suspect these wounds will heal as edema diminishes. Will have nursing apply dressing, and will initiate moderate compression w/ Spandagrip stockings while he is inpatient. Right Medial Ankle Venous Stasis Ulcer Dressing Type: Open to Air Exudate Characteristic(s): Dried Jessica Wound Tissue: Intact Wound Bed Color: Brown, Yellow Wound Bed Constitution: Dried Exudate, Adhered Slough Site Odor: None Site Measurement - Head-to-Toe Length X Width X Depth (cm): [id number] Peripheral Edema Location & Description: +2 pitting in RLE Skin Integrity Problem Comment: Discrete, dry wound w/ adhered slough, no erythema or exudate observed. Patient does not have any skin changes associated w/ chronic venous insufficiency. Wound appeared r/t recent onset of increased edema. Will have nursing apply dressing and compression stockings. Left Medial Ankle Venous Stasis Ulcer Dressing Type: Open to Air Exudate Characteristic(s): Dried Jessica Wound Tissue: Swollen (+2, pitting edema in LLE), Intact Wound Bed Color: Brown, Yellow Wound Bed Constitution: Scab, Dried Exudate, Adhered Slough Site Measurement - Head-to-Toe Length X Width X Depth (cm): [id number] Peripheral Edema Location & Description: +2, pitting edema Skin Integrity Problem Comment: Discrete, irregularly-shaped wound w/ adhered, dried slough and scab throughout. patient says wound emerged when significant swelling began in his lower extremities about 3 weeks ago. Now that edema is subsiding, wound is dry w/ wound contraction evident along the margins. Will initiate dressing and compression.
[2017-06-14] MEDS: PANTOPRAZOLE SODIUM 40 MG VIAL IVP SCH (15:08)
[2017-06-15 04:06] LABS: PLATELET COUNT 470 10^3/uL (150-400)
[2017-06-15] MEDS: TAMSULOSIN HCL 0.4 MG CAP PO SCH (08:28)
[2017-06-15] MEDS: MULTIVITAMINS 1 EACH TAB PO SCH (08:29)
[2017-06-15] MEDS: HYDROXYUREA 500 MG CAP PO SCH (08:29)
[2017-06-15] MEDS: FOLIC ACID 1 MG TAB PO SCH (08:30)
[2017-06-15] MEDS: ATORVASTATIN CALCIUM 40 MG TAB PO SCH (08:30)
[2017-06-15] MEDS: PREGABALIN 50 MG CAP PO SCH (08:30)
[2017-06-15] MEDS: OXYBUTYNIN 5 MG EXT REL TAB PO SCH (08:30)
[2017-06-15] MEDS: APIXABAN 5 MG TAB PO SCH (08:31)
[2017-06-15] MEDS: PANTOPRAZOLE SODIUM 40 MG VIAL IVP SCH (08:31)
[2017-06-15] MEDS: RAMIPRIL 5 MG CAP PO SCH (08:35)
--- NOTE | 2017-06-15 14:16 | ASMTCMCOM ---
CM Note CM Note Notes: Chart reviewed. 89 year old male admitted via ed for complaints of abdominal pain, Elevated lipase. Normally lives independent with his . Per PT recommending [facility]. CM to follow Date Signed: 06/15/2017 02:14 PM Electronically Signed By:Suze Carmichael RN
--- NOTE | 2017-06-15 14:52 | PDHOMEO2F ---
Home Oxygen Face to Face Home Orders: I certify that a physician or a nurse practitioner or physician's wellness assistant has had a xnvf-jp-oord encounter with this patient on the date of this order due to the diagnosis listed, which relates to the primary reason the patient requires home oxygen. Alternative treatments have been tried, or considered, and deemed ineffective. It is anticipated that supplemental oxygen will result in improvement with treatment. Home oxygen qualifying diagnosis: copd SpO2 on room air (%): 85 Frequency of home oxygen needed: continuous Home oxygen liters per minute: 2l Home oxygen delivery device: nasal cannula Concentrator: Yes E-tanks for mobility and back up: Yes If ordering portable O2, is the patient mobile in the home?: Yes I certify that, based on these findings, the home oxygen is medically necessary for this patient for the following length of time. Length of time home oxygen needed: 99 years
--- NOTE | 2017-06-15 15:00 | PDIAF ---
- Diagnosis Diagnosis: passed gallstone - Medication Management Discharge Medications: Medications to Continue on Transfer Apixaban [Eliquis] 5 mg PO BID 04/10/17 [Last Taken 06/13/17 21:00] Atorvastatin Calcium [Lipitor 40 mg (*)] 40 mg PO DAILY 04/10/17 [Last Taken 11/23] Hydroxyurea [Hydrea 500 mg (*)] 1,000 mg PO DAILY 04/10/17 [Last Taken 06/13/17] Metoprolol Tartrate [Lopressor 25 mg (*)] 12.5 mg PO DAILY 04/10/17 [Last Taken 06/13/17] Nitroglycerin [Nitrostat 0.4 mg (*)] 0.4 mg SL Q5M PRN 04/10/17 [Last Taken Unknown] Oxybutynin Chloride Xl [Ditropan Xl 5mg (*)] 5 mg PO DAILY 04/10/17 [Last Taken 06/13/17] Oxybutynin Chloride [OXYBUTYNIN CHLORIDE ER] 15 mg PO DAILY 04/10/17 [Last Taken 06/13/17] Pregabalin [Lyrica 50mg (*)] 50 mg PO DAILY 04/10/17 [Last Taken 06/13/17] Ramipril [Altace 5mg (*)] 10 mg PO BID 04/10/17 [Last Taken 06/13/17 21:00] Tamsulosin HCl [Flomax 0.4 MG (*)] 0.4 mg PO DAILY 04/10/17 [Last Taken 06/13/17 ] amLODIPine BESYLATE [Norvasc 5 mg (*)] 5 mg PO DAILY 04/10/17 [Last Taken ] Furosemide [Lasix 40 MG (*)] 40 mg PO DAILY #30 tab 06/15/17 [Last Taken Unknown ] Discharge Medications: Refer to the Discharge Home Medication list for PRN reason. - Orders Services needed: Home Care, Physical Therapy, Occupational Therapy Home Care Face to Face: I certify that this patient was under my care and that I had the required vlod-nt-nlit encounter meeting the encounter requirements on the discharge day. My findings support the fact that the patient is homebound as defined in Home Care Face to Face Continued: CMS Chapter 7 Medicare Benefits Manual 30.1.1 , The condition of the patient is such that there exists a normal inability to leave home and consequently, leaving home would require a considerable and taxing effort. Isolation Type: None - Follow Up Care Current Providers and Referrals: Patient,NotPresent [Unknown] - As per Instructions PCP Not In,Dictionary [Medical Doctor] - follow up in 2 weeks
[2017-06-15 15:28] VITALS: BP 94/48; PULSE 70; RESP 12; TEMP 97.4; O2SAT 93
--- NOTE | 2017-06-15 16:12 | ASMTCMCOM ---
CM Note CM Note Notes: Pt will DC today. NGUYEN signed. Pt will need HC RN, PT and OT. [facility] will provide with SOC on Sat. Date Signed: 06/15/2017 04:11 PM Electronically Signed By:Kortney Lundberg LCSW
--- NOTE | 2017-06-15 16:31 | PDIAF ---
- Diagnosis Diagnosis: passed gallstone - Medication Management Discharge Medications: Medications to Continue on Transfer Apixaban [Eliquis] 5 mg PO BID 04/10/17 [Last Taken 06/13/17 21:00] Atorvastatin Calcium [Lipitor 40 mg (*)] 40 mg PO DAILY 04/10/17 [Last Taken 11/23] Hydroxyurea [Hydrea 500 mg (*)] 1,000 mg PO DAILY 04/10/17 [Last Taken 06/13/17] Metoprolol Tartrate [Lopressor 25 mg (*)] 12.5 mg PO DAILY 04/10/17 [Last Taken 06/13/17] Nitroglycerin [Nitrostat 0.4 mg (*)] 0.4 mg SL Q5M PRN 04/10/17 [Last Taken Unknown] Oxybutynin Chloride Xl [Ditropan Xl 5mg (*)] 5 mg PO DAILY 04/10/17 [Last Taken 06/13/17] Oxybutynin Chloride [OXYBUTYNIN CHLORIDE ER] 15 mg PO DAILY 04/10/17 [Last Taken 06/13/17] Pregabalin [Lyrica 50mg (*)] 50 mg PO DAILY 04/10/17 [Last Taken 06/13/17] Ramipril [Altace 5mg (*)] 10 mg PO BID 04/10/17 [Last Taken 06/13/17 21:00] Tamsulosin HCl [Flomax 0.4 MG (*)] 0.4 mg PO DAILY 04/10/17 [Last Taken 06/13/17 ] amLODIPine BESYLATE [Norvasc 5 mg (*)] 5 mg PO DAILY 04/10/17 [Last Taken ] Furosemide [Lasix 40 MG (*)] 40 mg PO DAILY #30 tab 06/15/17 [Last Taken Unknown ] Discharge Medications: Refer to the Discharge Home Medication list for PRN reason. - Orders Services needed: Home Care, Registered Nurse, Physical Therapy, Occupational Therapy Home Care Face to Face: I certify that this patient was under my care and that I had the required haop-ks-ylak encounter meeting the encounter requirements on the discharge day. My findings support the fact that the patient is homebound as defined in Home Care Face to Face Continued: CMS Chapter 7 Medicare Benefits Manual 30.1.1 , The condition of the patient is such that there exists a normal inability to leave home and consequently, leaving home would require a considerable and taxing effort. Isolation Type: None - Follow Up Care Current Providers and Referrals: PCP Not In,Dictionary [Medical Doctor] - follow up in 2 weeks Patient,NotPresent [Unknown] - As per Instructions
--- NOTE | 2017-06-16 18:02 | ASDISCHSUM ---
Discharge Information Plan Status:Home with Home Health Medically Cleared to Leave:06/14/2017 Discharge Date:06/15/2017 05:10 PM D/C Disposition:Home Health Service [facility] D/C Disposition:Home, Routine, Self-Care Projected Discharge Date:06/15/2017 11:00 AM Transportation at D/C:Family Discharge Delay Reason: Follow-Up Date:06/15/2017 11:00 AM Discharge Slot: Final Diagnosis: Placement Information Referral Type:*Home Health Care Services Referral ID:[id number] Provider Name:[facility] Address 1:[address] [facility] [address] Address 2: [facility]:[place] Selection Factors: State:[place] Patient Contact Information Contact Name:JEISON Relationship: Address:[address] Work Phone: City:[place] Alternate Phone: State/Zip Code:[place] [address] Email: Financial Information Financial Class:Medicare Primary Plan Desc:MEDICARE OUTPATIENT Primary Plan Number:[id number] Secondary Plan Desc:[facility] Secondary Plan Number:[id number] Assessment Information [facility] Initial CM Assessment Living Arrangements What is your living Answers: With Spouse arrangement? Who do you live with? Type Of Residence What kind of residence do Answers: House you live in? Discharge Plan Comments Coordination Status Comments Notes: Pts case discussed in morning rounds. Pt is a 89 y/o man admitted for CHF, pancreatitis and abdominal pain. Pt will most likely d/c independent when medically stable. No therapies ordered at this time. Wound care has been consulted. CM available for changes. Plan: Independent Date Signed: 06/14/2017 12:26 PM Electronically Signed By:RON Cortez CAGE Questionnaire CAGE Do you feel you ought to Answers: Yes cut down on your drinking or drug use? Do people annoy you by Answers: No criticizing your drinking or drug use? Do you feel guilty about Answers: No your drinking or drug use? Do you drink or use drugs Answers: No first thing in the morning ([facility] Officer)? Date Signed: 06/14/2017 12:35 PM Electronically Signed By:RON Cortez [facility] CM Progress Note CM Note CM Note Notes: Chart reviewed. 89 year old male admitted via ed for complaints of abdominal pain, Elevated lipase. Normally lives independent with his . Per PT recommending C. CM to follow Date Signed: 06/15/2017 02:14 PM Electronically Signed By:Suze Carmichael RN [facility] CM Progress Note CM Note CM Note Notes: Pt will DC today. PATRICK signed. Pt will need HC RN, PT and OT. [facility] will provide with SOC on Date Signed: 06/15/2017 04:11 PM Electronically Signed By:Kortney Lundberg LCSW Intervention Information Intervention Type:*NGUYEN-Signed Date of Service:06/15/2017 04:13 PM Patient Type:Observation Staff Member:LOGAN Lundberg Claire Hours: Discipline: Severity: Comment:
[2017-06-17] MEDS ORDERED: THIAMINE HCL 100 MG TAB PO SCH (04:09)
== END 2017-06-15 17:10 | disposition home or self-care (01) ==
LOC: EDUNIT# → INTOOBSV 02:42 → F2W 05:04
PROVIDERS: ADMIT Family Medicine; ATTEND Family Medicine
DX: I50.9 Heart failure, unspecified (principal); K85.80 Other acute pancreatitis without necrosis or infection; J98.11 Atelectasis; J90 Pleural effusion, not elsewhere classified; I25.10 Atherosclerotic heart disease of native coronary artery without angina pectoris; E78.5 Hyperlipidemia, unspecified; Z86.73 Personal history of transient ischemic attack (TIA), and cerebral infarction without residual deficits; R10.13 Epigastric pain
CPT/HCPCS: 71045; 74177; 93005; 97116; 97161; G0378; G8978; G8979; J1940; J2270; J2405; Q9967; G0480

== ENCOUNTER 2017-07-11 23:25 | Emergency (ER) | payer OTHER ==
[2017-07-12 00:23] LABS: INR 1.99 (0.83-1.16); PROTIME(PATIENT) 22.7 SEC (12.0-15.0)
--- NOTE | 2017-07-12 02:16 | EDPHY ---
H & P Stated Complaint: FACE LAC,2129: FALL FLOOR-STANDING FROM BED, FALL EARILER TODAY-MECHANICAL Time Seen by Provider: 07/12/17 00:01 HPI/ROS: Chief Complaint: Fall HPI: 89-year-old male fell from bed tonight striking his right forehead on a hard object, maybe the oxygen cylinder or bedside table. No loss of consciousness. Sustained a laceration to his right eyebrow. He is on apixaban for atrial fibrillation. No confusion. No nausea or vomiting. No headache. No neck pain. No numbness or weakness. ROS: 10 point Review of Systems is negative except as noted in the HPI. Social History: No smoking, no alcohol, no recreational drug use Family History: non-contributory Physical Exam: Gen: Awake, Alert, Airway Intact HEENT: Head: He has a 3 cm deep laceration to his right eyebrow, no bony abnormality Eyes: PERRLA, EOMI, he has a large subconjunctival hemorrhage involving the entire sclera of his right eye., there is no hyphema. Vision is intact Nose: No epistaxis Mouth: Normal dentition, Airway patent Face: No deformity Neck: non-tender, no stepoff, Full ROM without pain Chest: non-tender, lungs CTA Heart: normal heart tones Abd: soft, non-tender, atraumatic Pelvis: non-tender, stable to AP and Lateral compression Back: atraumatic, no midline tenderness Ext: atramatic, full ROM Skin: no rash Neuro: CN II-XII intact, Strength 5/5 in all extremities, sensation intact in all extremities - Personal History Current Tetanus/Diphtheria Vaccine: Yes - Medical/Surgical History Hx Asthma: No Hx Chronic Respiratory Disease: No Hx Diabetes: No Hx Cardiac Disease: Yes Hx Renal Disease: No Hx Cirrhosis: No Hx Alcoholism: No Hx HIV/AIDS: No Hx Splenectomy or Spleen Trauma: No Other PMH: CABG x 5, TIA, Knees replaced, HTN, Hyperlipidemia, Atrial fibrillation - Social History Smoking Status: Former smoker Constitutional: Initial Vital Signs Temperature (C) 36.7 C 07/11/17 23:34 Heart Rate 98 07/11/17 23:34 Respiratory Rate 20 07/11/17 23:34 Blood Pressure 105/63 07/11/17 23:34 O2 Sat (%) 93 07/11/17 23:34 O2 Delivery Mode Room Air Allergies/Adverse Reactions: No Known Allergies Allergy (Verified 07/11/17 23:34) Home Medications: Medication Instructions Recorded Apixaban [Eliquis] 5 mg PO BID 04/10/17 Atorvastatin Calcium [Lipitor 40 40 mg PO DAILY 04/10/17 mg (*)] Hydroxyurea [Hydrea 500 mg (*)] 1,000 mg PO DAILY 04/10/17 Metoprolol Tartrate [Lopressor 25 12.5 mg PO DAILY 04/10/17 mg (*)] Nitroglycerin [Nitrostat 0.4 mg 0.4 mg SL Q5M PRN 04/10/17 (*)] Oxybutynin Chloride Xl [Ditropan 5 mg PO DAILY 04/10/17 Xl 5mg (*)] Oxybutynin Chloride [OXYBUTYNIN 15 mg PO DAILY 04/10/17 CHLORIDE ER] Pregabalin [Lyrica 50mg (*)] 50 mg PO DAILY 04/10/17 Ramipril [Altace 5mg (*)] 10 mg PO BID 04/10/17 Tamsulosin HCl [Flomax 0.4 MG (*)] 0.4 mg PO DAILY 04/10/17 amLODIPine BESYLATE [Norvasc 5 mg 5 mg PO DAILY 04/10/17 (*)] Furosemide [Lasix 40 MG (*)] 40 mg PO DAILY #30 tab 06/15/17 Medical Decision Making - Diagnostics Imaging Results: CT scan of the head and cervical spine are negative for acute injury per Dr. Ca. Imaging: Discussed imaging studies w/ order desk caller Radiologist Procedures: Procedure: Laceration repair. Verbal consent was obtained from the patient. The 3 cm laceration on the right eyebrow was anesthetized in the usual fashion. The wound was irrigated, draped and explored to its base with a gloved finger. There were no deep structures involved. No tendon injury was identified. The wound was repaired with a layered closure, 3, 5-0 Vicryl horizontal mattress sutures the deep tissue, followed by 6, 6-0 Ethilon simple interrupted sutures. The wound repair was complicated layered repair the face. The procedure was performed by myself. ED Course/Re-evaluation: 89-year-old male status post fall with forehead laceration in a large subconjunctival hemorrhage. There is no hyphema. Vision is intact. CT scans of the head and cervical spine are unremarkable. Will discharge with follow-up with primary care physician for further evaluation. - Data Points Laboratory Results: Laboratory Results 07/12/17 00:06 07/12/17 07/12/17 00:06 00:06 PT 22.7 SEC H SEC (12.0-15.0) INR 1.99 H (0.83-1.16) APTT 42.8 SEC H SEC (23.0-38.0) Sodium 143 mEq/L mEq/L (135-145) Potassium 4.2 mEq/L mEq/L (3.5-5.2) Chloride 104 mEq/L mEq/L (97-110) Carbon Dioxide 25 mEq/l mEq/l (22-31) Anion Gap 14 mEq/L mEq/L (8-16) BUN 33 mg/dL H mg/dL (7-23) Creatinine 1.3 mg/dL mg/dL (0.7-1.3) Estimated GFR 52 Glucose 109 mg/dL H mg/dL (70-100) Calcium 9.4 mg/dL mg/dL (8.5-10.4) Total Bilirubin 1.2 mg/dL mg/dL (0.1-1.4) AST 30 IU/L IU/L (17-59) ALT 40 IU/L IU/L (21-72) Alkaline Phosphatase 68 IU/L IU/L (38-126) Total Protein 6.3 g/dL g/dL (6.3-8.2) Albumin 3.7 g/dL g/dL (3.5-5.0) Departure - Departure Disposition: Home, Routine, Self-Care Clinical Impression: Face lacerations, Subconjunctival hemorrhage Condition: Good Instructions: Subconjunctival Hemorrhage (ED), Facial Laceration (ED) Additional Instructions: Sutures need to be removed in 5 days. Follow up with primary care physician in 1-2 days for further evaluation of the bleeding in your eye. Return to the emergency department for worsening vision, worsening pain, worsening confusion, nausea or vomiting, headache, or any other concerns. Referrals: Korey Ruano MD [Primary Care Provider] - As per Instructions
[2017-07-12 02:25] VITALS: BP 123/74
== END 2017-07-12 02:25 | disposition home or self-care (01) ==
PROC: 0HQ1XZZ Repair Face Skin, External Approach (ICD-10-PCS; principal; 2017-07-11)
DX: S01.81XA Laceration without foreign body of other part of head, initial encounter (principal); H11.31 Conjunctival hemorrhage, right eye; I10 Essential (primary) hypertension; Z87.891 Personal history of nicotine dependence; Z79.01 Long term (current) use of anticoagulants; W06.XXXA Fall from bed, initial encounter

== ENCOUNTER 2017-07-12 17:32 | Inpatient (IN) | payer OTHER ==
--- NOTE | 2017-07-12 19:27 | EDPHY ---
H & P Time Seen by Provider: 07/12/17 18:54 HPI/ROS: CHIEF COMPLAINT: Fall, anemia HISTORY OF PRESENT ILLNESS: Patient is an 89-year-old male who presents emergency department after being told to do so by his nurse practitioner care provider. Of note, the patient had a fall last evening. Please refer to his note. Per report, the patient has chronic leg pain and swelling. His family thinks this is the reason that he fell. Patient got up from bed and because of the leg pain fell forward. He struck his head and face. He had a negative head CT in the emergency department. Sutures were placed in his right brow. Patient was subsequent discharged home. This morning, the patient was contacted to have laboratory studies, chest x-ray and cardiac echo performed. The family thinks these tests were ordered unrelated to the fall. The patient had a chest x-ray and laboratory studies drawn today. The echo is still pending. The patient was called at home and told to come to the emergency department for admission. I did not speak to the nurse practitioner but the other physician in the emergency department did. The nurse practitioner was concerned that the patient's hematocrit has dropped from 32-30. The patient also has had 2 falls. The patient denies headache. No visual change. No neck or back pain. No chest pain or shortness of breath. Patient has a intermittent nonproductive cough. Patient's was concerned because the patient seems more fatigued than normal. REVIEW OF SYSTEMS: My complete review of systems is negative except as mentioned in the HPI. Past Medical/Surgical History: Includes coronary artery disease, TIA, hyperlipidemia, hypertension, atrial fibrillation Past surgical history: Includes CABG, knee replacement Social history: Patient lives at home with his . He does not smoke. Smoking Status: Former smoker Physical Exam: Vitals noted. 36.5, 115/70, 73, 18, 95% on room air GENERAL: No acute distress, alert. HEENT: The patient has a bandage over his right brow. I removed the bandages. Sutures are in place. There is no discharge or erythema. The patient also has a subconjunctival hemorrhage of his right eye. Extraocular movements are intact. Normal pharynx, no signs of dehydration. NECK: No thyromegaly, no lymphadenopathy, supple. No spinal tenderness. RESPIRATORY: Clear to auscultation bilaterally, no rales, rhonchi or wheezing. CVS: Regular rate and rhythm, no rubs, murmurs, or gallops. ABDOMEN: Soft, nontender, nondistended, no organomegaly. BACK: Normal to inspection, no CVA tenderness. No spinal tenderness SKIN: Normal color, no rash, warm, dry. No pallor. EXTREMITIES: Bilateral +2 pedal edema. Patient has symmetric edema. Patient has bilateral diffuse lower extremity tenderness to palpation. NEURO/PSYCH: Alert and oriented x3, normal mood and affect, normal motor sensory exam. No obvious cranial nerve deficit. Constitutional: Initial Vital Signs Temperature (C) 36.5 C 07/12/17 17:35 Heart Rate 73 07/12/17 17:35 Respiratory Rate 18 07/12/17 17:35 Blood Pressure 115/70 07/12/17 17:35 O2 Sat (%) 95 07/12/17 17:35 O2 Delivery Mode Room Air Allergies/Adverse Reactions: No Known Allergies Allergy (Verified 07/11/17 23:34) Home Medications: Medication Instructions Recorded Apixaban [Eliquis] 5 mg PO BID 04/10/17 Atorvastatin Calcium [Lipitor 40 40 mg PO DAILY 04/10/17 mg (*)] Hydroxyurea [Hydrea 500 mg (*)] 1,000 mg PO DAILY 04/10/17 Metoprolol Tartrate [Lopressor 25 12.5 mg PO DAILY 04/10/17 mg (*)] Nitroglycerin [Nitrostat 0.4 mg 0.4 mg SL Q5M PRN 04/10/17 (*)] Oxybutynin Chloride Xl [Ditropan 5 mg PO DAILY 04/10/17 Xl 5mg (*)] Oxybutynin Chloride [OXYBUTYNIN 15 mg PO DAILY 04/10/17 CHLORIDE ER] Pregabalin [Lyrica 50mg (*)] 50 mg PO BID 04/10/17 Ramipril [Altace 5mg (*)] 10 mg PO BID 04/10/17 Tamsulosin HCl [Flomax 0.4 MG (*)] 0.4 mg PO DAILY 04/10/17 Furosemide [Lasix 40 MG (*)] 40 mg PO DAILY #30 tab 06/15/17 Herbals/Supplements -Info Only 1 ea PO DAILY 07/12/17 oxyCODONE/APAP 5/325 [Percocet 1 - 2 tab PO Q4H PRN 07/12/17 (*)] Medical Decision Making ED Course/Re-evaluation: In the emergency department I discussed possible etiologies with the patient and family. I subsequently reviewed the patient's medical record. It is noted patient's hematocrit today is 30. Previous hematocrit was 32. There is no BNP pending. There is no troponin ordered. Patient's chest x-ray shows mild CHF. I discussed the laboratory results from earlier today with the patient's family. An IV was placed. Laboratory studies and EKG were obtained. Patient hematocrit was 33. BNP was elevated at greater than 2000. Troponin was negative. I discussed the results with the patient and family. I answered all her questions. I discussed case with Dr. Garcia. She will admit the patient for further evaluation and care. Differential Diagnosis: My differential includes but is not limited to ACS, acute MA, CHF, electrolyte abnormality, sugar abnormality, recurrent falls, subarachnoid hemorrhage, subdural hematoma, epidural hematoma, subconjunctival hemorrhage - Data Points Laboratory Results: Laboratory Results 07/12/17 19:49 07/12/17 19:49 07/12/17 07/12/17 19:49 19:49 WBC 9.04 10^3/uL 10^3/uL (3.80-9.50) RBC 3.18 10^6/uL L 10^6/uL (4.40-6.38) Hgb 10.9 g/dL L g/dL (13.7-17.5) Hct 33.3 % L % (40.0-51.0) MCV 104.7 fL H fL (81.5-99.8) MCH 34.3 pg H pg (27.9-34.1) MCHC 32.7 g/dL g/dL (32.4-36.7) RDW 17.4 % H % (11.5-15.2) Plt Count 551 10^3/uL H D 10^3/uL (150-400) MPV 10.6 fL fL (8.7-11.7) Neut % (Auto) 75.3 % H % (39.3-74.2) Lymph % (Auto) 9.7 % L % (15.0-45.0) [place] % (Auto) 11.3 % % (4.5-13.0) Eos % (Auto) 2.1 % % (0.6-7.6) Baso % (Auto) 1.3 % % (0.3-1.7) Nucleat RBC Rel Count 0.0 % % (0.0-0.2) Absolute Neuts (auto) 6.80 10^3/uL H 10^3/uL (1.70-6.50) Absolute Lymphs (auto) 0.88 10^3/uL L 10^3/uL (1.00-3.00) Absolute Monos (auto) 1.02 10^3/uL H 10^3/uL (0.30-0.80) Absolute Eos (auto) 0.19 10^3/uL 10^3/uL (0.03-0.40) Absolute Basos (auto) 0.12 10^3/uL H 10^3/uL (0.02-0.10) Absolute Nucleated RBC 0.00 10^3/uL 10^3/uL (0-0.01) Immature Gran % 0.3 % % (0.0-1.1) Immature Gran # 0.03 10^3/uL 10^3/uL (0.00-0.10) Sodium 142 mEq/L mEq/L (135-145) Potassium 4.6 mEq/L mEq/L (3.5-5.2) Chloride 105 mEq/L mEq/L (97-110) Carbon Dioxide 25 mEq/l mEq/l (22-31) Anion Gap 12 mEq/L mEq/L (8-16) BUN 31 mg/dL H mg/dL (7-23) Creatinine 1.0 mg/dL mg/dL (0.7-1.3) Estimated GFR > 60 Glucose 122 mg/dL H mg/dL (70-100) Calcium 9.9 mg/dL mg/dL (8.5-10.4) Troponin I < 0.012 ng/mL ng/mL (0.000-0.034) NT-Pro-B Natriuret Pep 2990 pg/mL H pg/mL (0-450) Departure - Departure Disposition: [facility] Inpatient Acute Clinical Impression: Fall Qualifiers: Encounter type: initial encounter Qualified Code(s): W19.XXXA - Unspecified fall, initial encounter Anemia Qualifiers: Anemia type: unspecified type Qualified Code(s): D64.9 - Anemia, unspecified Condition: Good Instructions: Fall Prevention for Older Adults (ED) Referrals: Korey Ruano MD [Primary Care Provider] - As per Instructions
--- NOTE | 2017-07-12 19:39 | CPEKG ---
Heart Rate: 97 RR Interval: 619 QRSD Interval: 126 QT Interval: 380 QTC Interval: 483 QRS [place]: 70 T Wave [place]: -62 EKG Severity - ABNORMAL ECG - EKG Impression: ATRIAL FIBRILLATION EKG Impression: RUN OF VENTRICULAR PREMATURE COMPLEXES EKG Impression: LEFT BUNDLE BRANCH BLOCK EKG Impression: INFERIOR Q WAVES, POSSIBLY DUE TO LBBB Electronically Signed By: Shira Alarcon 12-Jul-2017 22:55:02
[2017-07-12 19:56] LABS: PLATELET COUNT 551 10^3/uL (150-400)
[2017-07-12] MEDS ORDERED: ACETAMINOPHEN 500 MG TAB PO ONE (21:51)
[2017-07-12] MEDS ORDERED: ONDANSETRON 4 MG/2 ML VIAL IVP PRN (22:54)
[2017-07-13] MEDS ORDERED: FUROSEMIDE 20 MG/2 ML VIAL IVP ONE (08:29)
--- NOTE | 2017-07-13 08:33 | PDGENHP ---
History and Physical - Chief Complaint Weakness and falls - History of Present Illness Source patient is quinn historian. EMR was reviewed and case discussed with accepting hospitalist. HPI - pleasant 89-year-old gentleman with past medical history significant for CAD status post CABG AFib on apixaban essential thrombocytopenia, alcohol abuse , benign essential hypertension, BPH, HLD, history of TIA who presents emergency department after evaluation by his home health nurse felt that he needed evaluation emergency department. Her last several days patient has been having increasing weakness and falls. He does have a history of alcohol dependence in use on for which he states he will not quit drinking. He was seen in the emergency department on 07/11/2017 on following a fall requiring on right facial laceration repair. Patient denies any dizziness, no headache, no focal weakness. Patient reports that when he does not use his walker he falls. Apparently home health care on nurse evaluated the patient he was noted to have significantly increased lower extremity edema some wounds on his feet. Patient has been complaining some of increased lower extremity pain. He has had a low-grade temperature 99 F since arrival to the floor. Patient denies any fevers or chills. No nausea vomiting. No cough shortness breath or upper respiratory symptoms. History Information - Allergies/Home Medication List Allergies/Adverse Reactions: No Known Allergies Allergy (Verified 07/11/17 23:34) Home Medications: Apixaban [Eliquis] 5 mg PO BID 04/10/17 [Last Taken 07/12/17 AM DOSE] Atorvastatin Calcium [Lipitor 40 mg (*)] 40 mg PO DAILY 04/10/17 [Last Taken 11/23] Hydroxyurea [Hydrea 500 mg (*)] 1,000 mg PO DAILY 04/10/17 [Last Taken 06/13/17] Metoprolol Tartrate [Lopressor 25 mg (*)] 12.5 mg PO DAILY 04/10/17 [Last Taken 06/13/17] Nitroglycerin [Nitrostat 0.4 mg (*)] 0.4 mg SL Q5M PRN 04/10/17 [Last Taken Unknown] Oxybutynin Chloride Xl [Ditropan Xl 5mg (*)] 5 mg PO DAILY 04/10/17 [Last Taken 06/13/17] Oxybutynin Chloride [OXYBUTYNIN CHLORIDE ER] 15 mg PO DAILY 04/10/17 [Last Taken 06/13/17] Pregabalin [Lyrica 50mg (*)] 50 mg PO BID 04/10/17 [Last Taken 06/13/17] Ramipril [Altace 5mg (*)] 10 mg PO BID 04/10/17 [Last Taken 06/13/17 21:00] Tamsulosin HCl [Flomax 0.4 MG (*)] 0.4 mg PO DAILY 04/10/17 [Last Taken 06/13/17 ] Herbals/Supplements -Info Only 1 ea PO DAILY 07/12/17 [Last Taken Unknown] oxyCODONE/APAP 5/325 [Percocet 5/325 (*)] 1 - 2 tab PO Q4H PRN 07/12/17 [Last Taken Unknown] I have personally reviewed and updated: family history, medical history, social history, surgical history - Past Medical History Additional medical history: CAD status post CABG. TIA. AFib on apixaban. Essential thrombocytopenia. Alcohol abuse. Benign essential hypertension. BPH. Hyperlipidemia - Surgical History Additional surgical history: CABG five-vessel - Family History Additional family history: Patient reports his children are healthy. - Social History Smoking Status: Former smoker Tobacco Use: Cigarettes Alcohol Use: Occasionally (Patient reports that he has cut back to less than a 6 pack per day. He states his last drink was 2 days ago. He drinks beer.) Drug Use: None Additional social history: Patient is he lives with his he has home health care and is supposed to be utilizing a walker with ambulation. Cor status-full Review of Systems Review of Systems: ROS: 10pt was reviewed & negative except for what was stated in HPI & below ( Negative except as noted above in HPI) Physical Exam Physical Exam: Selected Entries 07/12/17 07/12/17 17:35 23:10 Blood Pressure Automatic Automatic Method Heart Rate 73 81 Respiratory 18 16 Rate O2 Sat (%) 95 93 Temperature (C) 36.5 C 37.4 C Blood Pressure 115/70 121/77 H Mean Arterial 85 91 Pressure (MAP) O2 Delivery Room Air Room Air Mode Temperature Oral Oral Source Constitutional: no apparent distress, chronically ill appearing, obese, other ( NAD. Patient is resting quietly in bed. Awake alert interactive.) Eyes: PERRL, anicteric sclera, EOMI Ears, Nose, Mouth, Throat: moist mucous membranes, no oral mucosal ulcers, poor dentition (Edentulous) Cardiovascular: regular rate and rhythym, no murmur, rub, or gallop, edema ( Patient with 2 to 3+ pitting edema bilateral lower extremities to the knee.) Peripheral Pulses: 1+: dorsalis-pedis (R) (Limited secondary to edema), dorsalis -pedis (L) (Limited secondary to edema) Respiratory: no respiratory distress, no rales or rhonchi, clear to auscultation , reduced air movement (Decreased air movement bibasilarly.), No expiratory wheeze, No inspiratory crackles Gastrointestinal: normoactive bowel sounds, soft, non-tender abdomen, no palpable masses, other (Obese), No donohue's sign, No distension Genitourinary: no bladder tenderness, No deutsch in urethra Skin: warm, normal color, abrasion (Wounds to bilateral home lower extremities on the posterior ankles. Patient also lists with some leaking serous fluid. Skin appears macerated. Quite tender.) Musculoskeletal: generalized weakness (Patient able to move all extremities but notably weak in upper lower extremities.) Neurologic: AAOx3, CN II-XII Intact, other (Right eyelid is swollen with ecchymosis. Sutures in place above the eyebrow.), No facial droop Psychiatric: interacting appropriately, not anxious, not encephalopathic, thought process linear, poor insight, No poor judgement, No poor memory Lab Data & Imaging Review 07/12/17 19:49 07/12/17 19:49 WBC 9.04 10^3/uL (3.80-9.50) 07/12/17 19:49 RBC 3.18 10^6/uL (4.40-6.38) L 07/12/17 19:49 Hgb 10.9 g/dL (13.7-17.5) L 07/12/17 19:49 Hct 33.3 % (40.0-51.0) L 07/12/17 19:49 MCV 104.7 fL (81.5-99.8) H 07/12/17 19:49 MCH 34.3 pg (27.9-34.1) H 07/12/17 19:49 MCHC 32.7 g/dL (32.4-36.7) 07/12/17 19:49 RDW 17.4 % (11.5-15.2) H 07/12/17 19:49 Plt Count 551 10^3/uL (150-400) H D 07/12/17 19:49 MPV 10.6 fL (8.7-11.7) 07/12/17 19:49 Neut % (Auto) 75.3 % (39.3-74.2) H 07/12/17 19:49 Lymph % (Auto) 9.7 % (15.0-45.0) L 07/12/17 19:49 [place] % (Auto) 11.3 % (4.5-13.0) 07/12/17 19:49 Eos % (Auto) 2.1 % (0.6-7.6) 07/12/17 19:49 Baso % (Auto) 1.3 % (0.3-1.7) 07/12/17 19:49 Nucleat RBC Rel Count 0.0 % (0.0-0.2) 07/12/17 19:49 Absolute Neuts (auto) 6.80 10^3/uL (1.70-6.50) H 07/12/17 19:49 Absolute Lymphs (auto) 0.88 10^3/uL (1.00-3.00) L 07/12/17 19:49 Absolute Monos (auto) 1.02 10^3/uL (0.30-0.80) H 07/12/17 19:49 Absolute Eos (auto) 0.19 10^3/uL (0.03-0.40) 07/12/17 19:49 Absolute Basos (auto) 0.12 10^3/uL (0.02-0.10) H 07/12/17 19:49 Absolute Nucleated RBC 0.00 10^3/uL (0-0.01) 07/12/17 19:49 Immature Gran % 0.3 % (0.0-1.1) 07/12/17 19:49 Immature Gran # 0.03 10^3/uL (0.00-0.10) 07/12/17 19:49 Sodium 142 mEq/L (135-145) 07/12/17 19:49 Potassium 4.6 mEq/L (3.5-5.2) 07/12/17 19:49 Chloride 105 mEq/L (97-110) 07/12/17 19:49 Carbon Dioxide 25 mEq/l (22-31) 07/12/17 19:49 Anion Gap 12 mEq/L (8-16) 07/12/17 19:49 BUN 31 mg/dL (7-23) H 07/12/17 19:49 Creatinine 1.0 mg/dL (0.7-1.3) 07/12/17 19:49 Estimated GFR > 60 07/12/17 19:49 Glucose 122 mg/dL (70-100) H 07/12/17 19:49 Calcium 9.9 mg/dL (8.5-10.4) 07/12/17 19:49 Troponin I < 0.012 ng/mL (0.000-0.034) 07/12/17 19:49 NT-Pro-B Natriuret Pep 2990 pg/mL (0-450) H 07/12/17 19:49 EKG additional interpertation: Atrial fibrillation in the 90s. PVCs. Left bundle branch block. Q-waves in the inferior leads with T-wave inversion in lateral leads no acute ST elevations. Assessment & Plan Assessment: Pleasant 89-year-old gentleman with history of CAD status post CABG AFib on and apixaban BPH HTN presents with worsening lower extremity edema Generalized weakness - likely multifactorial including CHF, anemia, alcohol dependence and AFib. PT OT consult. Acute on chronic systolic CHF decompensated - gentle diuresis. Fluid restriction. Recommend alcohol cessation but patient declines Lower extremity edema - diuresis, elevate extremities. Wounds to lower extremities - wound Care consulted secondary to edema. Anemia (Acute) - patient without any evidence of active bleeding. He has had several falls in the feet contusions vitals are otherwise stable continue monitor H&H. Fall (Acute) - PTOT as above Chronic medical issues. #Atrial fibrillation on chronic anticoagulation - rate currently controlled. Diurese and continue rate control. #CAD - resume patient's home medications including beta-nicole aspirin statin and AceI #Essential thrombocytosis - monitor #Alcohol abuse - cessation encouraged as above. CIWA protocol. #Benign essential hypertension - blood pressure is acceptable at this time resume patient's beta nicole and Peter inhibitor 1 med rec available. #BPH - continue tamsulosin. #HLD - continue statin. FEN - thin lock IV. Electrolyte monitoring and replacement p.r.n.. Cardiac diet low salt fluid restrict. PPX-no SCDs secondary to wounds and edema. Patient is already on apixaban Cor status-full Disposition and patient mid observation at this time pending test ripped to response to above treatment.
[2017-07-13] MEDS: ACETAMINOPHEN 325 MG TAB PO PRN ×4 (08:54→22:17)
[2017-07-13 09:55] LABS: PLATELET COUNT 541 10^3/uL (150-400)
[2017-07-13] MEDS ORDERED: NITROGLYCERIN 0.4 MG BTL SL PRN (10:23)
[2017-07-13] MEDS ORDERED: OXYCODONE/APAP 5/325 TAB PO PRN (10:23)
[2017-07-13] MEDS ORDERED: PREGABALIN 50 MG CAP PO SCH (10:30)
[2017-07-13] MEDS ORDERED: OXYBUTYNIN CHLORIDE 15 MG PO SCH (10:30)
--- NOTE | 2017-07-13 11:06 | ASMTCMCOM ---
CM Note CM Note Notes: Pt admitted after fall, was just in ED on 07/11 with fall also. Rec'd call from pt's HC RN w/[facility], Nancy ([phone]) who reported that wound care at home has been difficult b/c of his neuropathy pain and that he has had several falls lately. Discussed w/hospitalist, Liz Elliott who anticipates pt will be here til at least Saturday- may be possible for pt to go home w/HHC if he improves btw now and then. May need to look at SNF option. CM will follow. Date Signed: 07/13/2017 11:06 AM Electronically Signed By:Ingris Contreras RN
[2017-07-13] MEDS: FUROSEMIDE 40 MG TAB PO SCH (11:09)
[2017-07-13] MEDS: APIXABAN 5 MG TAB PO SCH ×2 (11:09→20:34)
[2017-07-13] MEDS: METOPROLOL TARTRATE 25 MG TAB PO SCH (11:14)
[2017-07-13] MEDS: TAMSULOSIN HCL 0.4 MG CAP PO SCH (11:17)
--- NOTE | 2017-07-13 11:54 | HOSPPROG ---
Hospitalist Progress Note Assessment/Plan: Pleasant 89-year-old gentleman with history of CAD status post CABG AFib on and apixaban BPH HTN presents with worsening lower extremity edema. First encounter, chart reviewed. D/W Dr Capellan. #Generalized weakness - likely multifactorial including CHF, anemia, alcohol dependence and AFib. PT OT consult. #Acute on chronic systolic CHF decompensated - gentle diuresis. Fluid restriction. Recommend alcohol cessation but patient declines #Lower extremity edema - diuresis, elevate extremities PETER wraps D/W RN #Wounds to lower extremities - wound Care consulted secondary to edema chronic may need intervention #[facility] #Anemia (Acute) - patient without any evidence of active bleeding. He has had several falls stable continue monitor H&H. #Fall (Acute) - PT/OT as above #Neuropathy on lyrica cont daily not BID dose was just increased could be adding to falls monitor #Atrial fibrillation on chronic anticoagulation - rate currently controlled. Cont apixaban Diurese and continue rate control. #CAD - resume patient's home medications including beta-nicole aspirin statin and AceI #Essential thrombocytosis - monitor #Alcohol abuse - cessation encouraged WA protocol. no signs of withdrawl #Benign essential hypertension - blood pressure is acceptable at this time resume patient's beta nicole and Peter inhibitor #BPH - continue tamsulosin. #HLD - continue statin. #urinary ugency hold ditropan XL on XL 5mg and regular 15mg? FEN - Cardiac diet low salt fluid restrict. PPX-no SCDs secondary to wounds and edema. Patient is already on apixaban Cor status-full Disposition change to inpt status will need further care possible SNF Subjective: C/O leg pain. Up in chair. Upset about falling. Family at bedside. Objective: Vital Signs Temp Pulse Resp BP Pulse Ox 37.0 C 110 H 16 124/66 H 97 07/13/17 07:29 07/13/17 07:29 07/13/17 07:29 07/13/17 11:14 07/13/17 07:29 Laboratory Results 07/13/17 09:37 07/13/17 09:37 07/12/17 07/13/17 07/14/17 05:59 05:59 05:59 Output Total 800 Balance -800 - Physical Exam Constitutional: appears nourished, chronically ill appearing, uncomfortable Eyes: PERRL, anicteric sclera, EOMI Ears, Nose, Mouth, Throat: moist mucous membranes, hearing normal, ears appear normal Cardiovascular: edema, No JVD, No tachycardia Respiratory: no respiratory distress, no rales or rhonchi, reduced air movement Gastrointestinal: No tenderness, No ascites, No guarding Skin: warm, abrasion, erythema Musculoskeletal: no joint effusions, pain with ROM, muscular tenderness, abnormal gait, generalized weakness Neurologic: AAOx3 Psychiatric: interacting appropriately, not anxious, not encephalopathic, poor insight, poor judgement ICD10 Worksheet Patient Problems: Problems Problem Status Onset Syncope Acute Troponin level elevated Acute CHF (congestive heart failure) Acute Pancreatitis Acute Fall Acute Anemia Acute
[2017-07-13] MEDS: HYDROXYUREA 500 MG CAP PO SCH (12:22)
--- NOTE | 2017-07-13 13:44 | PDMN ---
Medical Necessity Medical necessity: C/M review: est. > 2 MN LOS for eval and TX of acute and persistent generalized weakness, acute on chronic systolic CHF decompensated, worsening lower extremity edema, head laceration from mechanical fall present on admission - stable, acute anemia, requiring IV Lasix x 1, Wound care consult , ongoing fluid restriction, monitor Hgb / Hct, acute inpt PT/OT, comorbid fall prior to this admission, chronic wounds to lower extremities present on admission, neuropathy, atrial fibrillation on chronic anticoagulation, CAD S/P CABG, essential thrombocytosis, alcohol abuse, benign essential hypertension, BPH, hyperlipidemia, urinary urgency per 07/13/2017 Hospitalist progress note.
[2017-07-13] MEDS ORDERED: MAGNESIUM SULF 1 GM/DEXTROSE 100 ML IV ONE (17:30)
[2017-07-13] MEDS: RAMIPRIL 5 MG CAP PO SCH (20:34)
[2017-07-13] MEDS ORDERED: PREGABALIN 50 MG CAP PO ONE (22:06)
[2017-07-14] MEDS: ACETAMINOPHEN 325 MG TAB PO PRN ×4 (08:49→22:35)
[2017-07-14] MEDS: ATORVASTATIN CALCIUM 40 MG TAB PO SCH (08:50)
[2017-07-14] MEDS: TAMSULOSIN HCL 0.4 MG CAP PO SCH (08:50)
[2017-07-14] MEDS: FUROSEMIDE 40 MG TAB PO SCH (08:51)
[2017-07-14] MEDS: OXYBUTYNIN CHLORIDE 5 MG TAB PO SCH (08:51)
[2017-07-14] MEDS: HYDROXYUREA 500 MG CAP PO SCH (08:52)
[2017-07-14] MEDS: APIXABAN 5 MG TAB PO SCH ×2 (08:52→19:41)
[2017-07-14] MEDS: METOPROLOL TARTRATE 25 MG TAB PO SCH (08:59)
[2017-07-14] MEDS ORDERED: PREGABALIN 50 MG CAP PO SCH (09:00)
[2017-07-14] MEDS ORDERED: MAGNESIUM SULF 2 GM/WATER 50 ML IV ONE (10:09)
[2017-07-14] MEDS: RAMIPRIL 5 MG CAP PO SCH ×2 (10:36→19:40)
--- NOTE | 2017-07-14 11:30 | HOSPPROG ---
Hospitalist Progress Note Assessment/Plan: Pleasant 89-year-old gentleman with history of CAD status post CABG AFib on and apixaban BPH HTN presents with worsening lower extremity edema. #Generalized weakness - likely multifactorial PT OT consult. likely related to lyrica #Acute on chronic systolic CHF decompensated - gentle diuresis. Fluid restriction. Recommend alcohol cessation but patient declines responding well #Lower extremity edema - diuresis, elevate extremities PETER wraps D/W RN significantly improved educated pt and family #Wounds to lower extremities - wound Care consulted secondary to edema chronic may need intervention #Head lac stable from [facility] fall #Anemia (Acute) - patient without any evidence of active bleeding. He has had several falls stable continue monitor H&H. #Fall (Acute) - PT/OT as above #Neuropathy on lyrica, dose recently increased possible cause of recent falls DC Lyrica start neurontin d/w pharmacy and family pain significant #Atrial fibrillation on chronic anticoagulation - rate currently controlled. Cont apixaban Diurese and continue rate control. #CAD - resume patient's home medications including beta-nicole aspirin statin and AceI #Essential thrombocytosis - monitor #Alcohol abuse - cessation encouraged CIWA protocol. no signs of withdrawl #Benign essential hypertension - blood pressure is acceptable at this time resume patient's beta nicole and Peter inhibitor #BPH - continue tamsulosin. #HLD - continue statin. #urinary ugency hold ditropan XL on XL 5mg and regular 15mg? FEN - Cardiac diet low salt fluid restrict. PPX-no SCDs secondary to wounds and edema. Patient is already on apixaban Cor status-full Disposition possible SNF vs HHC adjust medication for leg pain and confusion/falls Subjective: Up in chair. Feels well. Still having significant leg pains. Objective: Vital Signs Temp Pulse Resp BP Pulse Ox 36.9 C 74 16 116/69 95 07/14/17 08:23 07/14/17 08:23 07/14/17 08:23 07/14/17 10:35 07/14/17 08:23 Laboratory Results 07/13/17 09:37 07/13/17 09:37 07/13/17 07/14/17 07/15/17 05:59 05:59 05:59 Intake Total 1300 Output Total 800 3 Balance -800 1297 - Physical Exam Constitutional: appears nourished, chronically ill appearing, uncomfortable Eyes: PERRL, anicteric sclera, EOMI Ears, Nose, Mouth, Throat: moist mucous membranes, hearing normal, ears appear normal Cardiovascular: edema, No JVD, No tachycardia Respiratory: no respiratory distress, no rales or rhonchi, clear to auscultation Gastrointestinal: normoactive bowel sounds, No tenderness, No ascites Skin: warm, erythema, pressure ulcer Musculoskeletal: no joint effusions, pain with ROM, generalized weakness Psychiatric: interacting appropriately, not anxious, poor judgement, poor memory ICD10 Worksheet Patient Problems: Problems Problem Status Onset Syncope Acute Troponin level elevated Acute CHF (congestive heart failure) Acute Pancreatitis Acute Fall Acute Anemia Acute
--- NOTE | 2017-07-14 13:05 | WOCRNPDOC ---
WOCR[facility] Advanced Assessment Note - Skin Integrity Problem, Advanced Assess Left Medial Ankle Dressing Type: Peter Bandage (x2), Allevyn Life Dressing Description: Clean/Dry, Intact Exudate Amount: Minimal Exudate Color: Yellow Exudate Characteristic(s): Serous Integumentary Issue Intervention: Dressing Changed, Non-Silver Antimicrobial Gel Applied (Honey), Mechanical Debridement Jessica Wound Tissue: Erythema, Thin, Scarred, Painful/Tender Wound Bed Color: Yellow Wound Bed Constitution: Dried Exudate, Adhered Slough Wound Edges: Attached, Well Defined Site Measurement - Head-to-Toe Length X Width X Depth (cm): [id number] Skin Integrity Problem Comment: Patient sitting up in chair. Elevated patient's legs and allevyn removed. Patient with significant pain, unable to sit still. Discreet wound on the medial ankle, currently dry but per ivan Collado up until now. Attempted to mechanically debride with NS and gauze but patient unable to tolerate. Will initiate autolytic debridement with honey. Explained to patient and family the benefit of compression. At this time, patient agreeable to try. Patients legs measured. Activon honey applied to wound bed, covered with meplix non-bordered foam, wrapped with amador and secured with tape. Spandagrip size D then applied over dressing. Doubtful that patient will tolerate the compression longer term. Questions answered. Wound care will round again later this week. Right Lower Leg Dressing Type: Peter Bandage, Allevyn Life Dressing Description: Clean/Dry, Intact Exudate Amount: Minimal Exudate Color: Yellow Exudate Characteristic(s): Serous Integumentary Issue Intervention: Dressing Changed, Non-Silver Antimicrobial Gel Applied (honey), Mechanical Debridement Wound Bed Color: Yellow Wound Bed Constitution: Dried Exudate, Adhered Slough Wound Edges: Attached Site Measurement - Head-to-Toe Length X Width X Depth (cm): [id number] Skin Integrity Problem Comment: Large wound on the posterior ankle from medial to lateral malleoli. Wound is currently dry but per ivan Collado up until now. Attempted to mechanically debride with NS and gauze but patient unable to tolerate. Will initiate autolytic debridement with honey. Activon honey applied to wound bed, covered with meplix non-bordered foam, wrapped with amador and secured with tape. Spandagrip size D then applied over dressing. Wound care will round again later this week.
[2017-07-14] MEDS ORDERED: GABAPENTIN 100 MG CAP PO SCH (16:00)
--- NOTE | 2017-07-14 17:01 | ASMTCMCOM ---
CM Note CM Note Notes: [facility] CM shared therapies are recommending [facility] support. CM met with patient and family (daughter Felicia [phone]) to discuss discharge plan. CM explained PT and OT recommendation, patient states he would like to wait on this, the daughter states it would be good to know options. CM shared we can place referrals to local SNF's to check availability, they would like to follow up with CM tomorrow. D/C date unknown at this time. CM available to support patient CM needs. D/C Plan: Possibly 07/15 D/C to SNF or return to Date Signed: 07/14/2017 05:00 PM Electronically Signed By:Guerline Armando
[2017-07-14] MEDS: PRAMIPEXOLE 0.125 MG TAB PO SCH (19:40)
[2017-07-14] MEDS: MAGNESIUM OXIDE 400 MG TAB PO SCH (19:41)
[2017-07-15 04:58] LABS: PLATELET COUNT 539 10^3/uL (150-400)
[2017-07-15] MEDS: APIXABAN 5 MG TAB PO SCH ×2 (09:02→21:45)
[2017-07-15] MEDS: ATORVASTATIN CALCIUM 40 MG TAB PO SCH (09:03)
[2017-07-15] MEDS: FUROSEMIDE 40 MG TAB PO SCH (09:04)
[2017-07-15] MEDS: HYDROXYUREA 500 MG CAP PO SCH (09:05)
[2017-07-15] MEDS: PRAMIPEXOLE 0.125 MG TAB PO SCH ×2 (09:06→21:45)
[2017-07-15] MEDS: TAMSULOSIN HCL 0.4 MG CAP PO SCH (09:06)
[2017-07-15] MEDS: ACETAMINOPHEN 325 MG TAB PO PRN ×3 (09:20→21:44)
[2017-07-15] MEDS: OXYBUTYNIN CHLORIDE 5 MG TAB PO SCH (09:21)
[2017-07-15] MEDS: RAMIPRIL 5 MG CAP PO SCH ×2 (11:15→21:43)
--- NOTE | 2017-07-15 14:20 | HOSPPROG ---
Hospitalist Progress Note Assessment/Plan: # fall - most c/w mechanical; has a head lac # weakness - working with PT; likely multifactorial - recommending SNF - lyrica may have contributed # a-fib - cont metop and eliquis - cont lasix # possible acute on chronic sCHF - only mild reduction in EF - close to euvolemia - mild LE edema # anemia - stable # neuropathy - concerned that lyrica may have contributed; mirapex started # etOH abuse - no signs of w/d # urinary urgency - on ditropan - this may also contribute to weakness # LE wounds - wound care # CAD s/p CABG - eliquis/ramipril/metop/lipitor # ET - hydroxyurea # BPH - flomax # DVT ppx - eliquis Subjective: discussed at length with patient, and grandson Objective: Vital Signs Temp Pulse Resp BP Pulse Ox 37.1 C 83 17 91/73 L 88 L 07/15/17 07:34 07/15/17 07:34 07/15/17 07:34 07/15/17 11:15 07/15/17 07:34 Laboratory Results 07/15/17 04:30 07/15/17 04:30 07/14/17 07/15/17 07/16/17 05:59 05:59 05:59 Intake Total 1300 1000 Output Total 3 0885 453 Balance [id number] chart reviewed ECG personally reviewed CT head/c-spine/CXR reviewed ICD10 Worksheet Patient Problems: Problems Problem Status Onset Syncope Acute Troponin level elevated Acute CHF (congestive heart failure) Acute Pancreatitis Acute Fall Acute Anemia Acute
--- NOTE | 2017-07-15 14:48 | ASMTCMCOM ---
CM Note CM Note Notes: PT/OT continue to rec SNF. Pt son will tour [facility] and [facility] today and let CM know SNF choice. Some family is somewhat hesitant about SNF as a family member recently at [facility]. Since [facility] and [facility] are rehab only these may be the best options for SNF. CM to follow. Date Signed: 07/15/2017 02:48 PM Electronically Signed By:DINO Keith
[2017-07-15] MEDS: METOPROLOL TARTRATE 25 MG TAB PO SCH (15:14)
[2017-07-15] MEDS: MAGNESIUM OXIDE 400 MG TAB PO SCH (21:44)
[2017-07-16] MEDS: ACETAMINOPHEN 325 MG TAB PO PRN ×2 (07:07→12:57)
[2017-07-16] MEDS: FUROSEMIDE 40 MG TAB PO SCH (08:34)
[2017-07-16] MEDS: METOPROLOL TARTRATE 25 MG TAB PO SCH (08:34)
[2017-07-16] MEDS: TAMSULOSIN HCL 0.4 MG CAP PO SCH (08:34)
[2017-07-16] MEDS: OXYBUTYNIN CHLORIDE 5 MG TAB PO SCH (08:34)
[2017-07-16] MEDS: HYDROXYUREA 500 MG CAP PO SCH (08:34)
[2017-07-16] MEDS: ATORVASTATIN CALCIUM 40 MG TAB PO SCH (08:34)
[2017-07-16] MEDS: RAMIPRIL 5 MG CAP PO SCH (08:35)
[2017-07-16] MEDS: APIXABAN 5 MG TAB PO SCH (08:35)
[2017-07-16] MEDS: PRAMIPEXOLE 0.125 MG TAB PO SCH (08:35)
--- NOTE | 2017-07-16 13:34 | PDIAF ---
- Diagnosis Diagnosis: Weakness, fall Code Status: Full Code - Medication Management Discharge Medications: Medications to Continue on Transfer Apixaban [Eliquis] 5 mg PO BID 04/10/17 [Last Taken 07/12/17 AM DOSE] Atorvastatin Calcium [Lipitor 40 mg (*)] 40 mg PO DAILY 04/10/17 [Last Taken 11/23] Hydroxyurea [Hydrea 500 mg (*)] 1,000 mg PO DAILY 04/10/17 [Last Taken 06/13/17] Metoprolol Tartrate [Lopressor 25 mg (*)] 12.5 mg PO DAILY 04/10/17 [Last Taken 06/13/17] Nitroglycerin [Nitrostat 0.4 mg (*)] 0.4 mg SL Q5M PRN 04/10/17 [Last Taken Unknown] Oxybutynin Chloride [OXYBUTYNIN CHLORIDE ER] 15 mg PO DAILY 04/10/17 [Last Taken 06/13/17] Ramipril [Altace 5mg (*)] 10 mg PO BID 04/10/17 [Last Taken 06/13/17 21:00] Tamsulosin HCl [Flomax 0.4 MG (*)] 0.4 mg PO DAILY 04/10/17 [Last Taken 06/13/17 ] Furosemide [Lasix 40 MG (*)] 40 mg PO DAILY #30 tab 06/15/17 [Last Taken Unknown ] Herbals/Supplements -Info Only 1 ea PO DAILY 07/12/17 [Last Taken Unknown] Discharge Medications: Refer to the Discharge Home Medication list for PRN reason. - Orders Services needed: Registered Nurse, Certified Acid Tank Cleaner, Physical Therapy, Occupational Therapy Isolation Type: None Diet Recommendation: sodium restricted Weigh Patient: weekly Wound Care Instructions: Change dressing to right medial/lateral/and posterior ankle every 2 days and PRN. NOTE: Wound extends around 3/4 of the ankle, including posterior aspect. 1. Clean with NS and gauze. 2. Skin prep naomi wound. 3. Activon honey gel to slough-filled areas. 4. Cover with 2 Allevyn Life 6x6 dressings; trim edge of one of the dressings to cover wound on posterior aspect, then overlap border from the 2nd Allevyn over the top, so that only the foam is touching the wound bed, not the silicone border. Change dressing to left medial ankle every 2 days and PRN. 1. Clean with NS and gauze. 2. Skin prep naomi wound. 3. Activon honey gel to slough-filled areas of wound bed. 4. Cover with Allevyn Life dressing. Patient should have Spandagrip size D on bilateral lower legs from balls of feet to 1 inch under the knees. These should be applied each morning before patient gets out of bed, and are to be taken off each night. Patient had appointment with [facility], but had to cancel because he was hospitalized. Please reschedule /confirm an appointment for eval and treatment of lower leg wounds w/in 2-3 weeks: [phone]. FRANCISCO Parham Sutures/Gabrielle Site: R forehead Date to Remove Sutures/[place]: 07/23/17 Additional Instructions: Change dressing to right medial/lateral/and posterior ankle every 2 days and PRN. NOTE: Wound extends around 3/4 of the ankle, including posterior aspect. 1. Clean with NS and gauze 2. Skin prep naomi wound 3. Activon honey gel to slough-filled areas 4. Cover with 2 Allevyn Life 6x6 dressings; trim edge of one of the dressings to cover wound on posterior aspect, then overlap border from the 2nd Allevyn over the top, so that only the foam is touching the wound bed, not the silicone border Change dressing to left medial ankle every 2 days and PRN. 1. Clean with NS and gauze 2. Skin prep naomi wound 3. Activon honey gel to slough-filled areas of wound bed 4. Cover with Allevyn Life dressing Patient should have Spandagrip size D on bilateral lower legs from balls of feet to 1 inch under the knees. These should be applied each morning before patient gets out of bed, and are to be taken off each night. Patient had appointment with [facility], but had to cancel because he was hospitalized. Please reschedule/confirm an appointment for eval and treatment of lower leg wounds w/in 2-3 weeks: [phone] FRANCISCO Parham - Labs/Radiology BMP Date: 07/21/17 - Follow Up Care Current Providers and Referrals: Korey Ruano MD [Primary Care Provider] - As per Instructions [facility] [Clinic] - (2-3 weeks)
--- NOTE | 2017-07-16 14:01 | GDS ---
[f rep st] DISCHARGE SUMMARY ALL DIAGNOSES: 1. Weakness/fall. 2. Atrial fibrillation. 3. Possible [id number] systolic congestive heart failure. 4. Anemia. 5. Neuropathy. 6. Alcohol abuse. 7. Urinary urgency. 8. Lower extremity wounds. 9. Coronary artery disease, status post coronary artery bypass graft. 10. Essential thrombocytosis. 11. BPH. HOSPITAL COURSE: 89-year-old man admitted with falls. He had hit his head and required sutures in [facility] emergency department. Suspect that weakness and falls are multifactorial. I have discontinued a few of his medications including Lyrica and oxycodone. I have recommend that he decrease his Ditropa n dose. He has been seen by PT and OT, who feel that he would benefit from snf facility assistance. He has been in atrial fibrillation, he is rate controlled on metoprolol and anticoagulat ed with Eliquis. Outpatient consideration could be given to discontinuation of Eliquis if he continu es to have falls. He has bilateral lower extremity wounds that appear venous stasis in origin. He h as seen wound care. Wound care instructions are in the interagency transfer form. He has essential thrombocytosis, on hydroxyurea, followed by Dr. Ruano. Ongoing consideration to stopping Ditropan as well as discontinue discontinuation of Eliquis. FOLLOWUP: 1. Wound care in 2-[address] Ruano per patient's previous timeline. BILLING: I spent more than 30 minutes on the day of discharge coordinating care. /[id number]/MODL
[2017-07-16 16:42] VITALS: BP 136/67
--- NOTE | 2017-07-17 09:22 | ASMTCMCOM ---
CM Note CM Note Notes: Pt medically stable for d/c to [facility] yesterday, orders sent in [employer]. PB scheduled wc transport. Date Signed: 07/17/2017 09:21 AM Electronically Signed By:DINO Keith
--- NOTE | 2017-07-17 14:45 | ASDISCHSUM ---
Discharge Information Plan Status:SNF Medically Cleared to Leave: Discharge Date:07/16/2017 05:57 PM CM D/C Disposition:Assisted Facility ADT D/C Disposition:Assisted Facility Projected Discharge Date:07/15/2017 11:00 AM Transportation at D/C:Wheelchair Van Discharge Delay Reason: Follow-Up Date:07/15/2017 11:00 AM Discharge Slot: Final Diagnosis: Placement Information Referral Type:*Assisted/SNF Referral ID:[id number] Provider Name:Kristi Howard Address 1:[address] Phone Number: Address 2: Fax Number: City:[place] Selection Factors: State:[place] Patient Contact Information Contact Name:ROTRISHANDI Relationship: Address:[address] Work Phone: City:[place] Alternate Phone: [facility] Code:[place] [address] Email: Financial Information Financial Class:Medicare Primary Plan Desc:MEDICARE INPATIENT Primary Plan Number:[id number] Secondary Plan Desc:[facility] Secondary Plan Number:[id number] Assessment Information LACE LACE Length of stay for Answers: 1 day current admission Acuity / Level of Answers: Yes Care: Did the patient have an inpatient admission? Comorbidities - select Answers: Congestive heart failure all that apply History of falls Other Notes: CAD, Afib # of Emergency department Answers: 3-4 visits in the last 6 months Social determinants Answers: History of substance abuse (ETOH, street drugs, prescription drugs, etc.) Score: 16 Date Signed: 07/13/2017 11:01 AM Electronically Signed By:Ingris Contreras RN [facility] LILY Progress Note CM Note CM Note Notes: Pt admitted after fall, was just in ED on 07/11 with fall also. [phone][facility] who reported that wound care at home has been difficult b/c of his neuropathy pain and that he has had several falls lately. Discussed w/hospitalist, Liz Elliott who anticipates pt will be here til at least Saturday- may be possible for pt to go home w/[facility] if he improves btw now and then. May need to look at SNF option. CM will follow. Date Signed: 07/13/2017 11:06 AM Electronically Signed By:Ingris Contreras RN [facility] CM Progress Note CM Note CM Note Notes: CM received call from Nancy nurse asking for update. CM shared therapies are recommending [facility] support. CM met with patient and family (daughter Felicia [phone]) to discuss discharge plan. CM explained PT and OT recommendation, patient states he would like to wait on this, the daughter states it would be good to know options. CM shared we can place referrals to local SNF's to check availability, they would like to follow up with CM tomorrow. D/C date unknown at this time. CM available to support patient CM needs. D/C Plan: Possibly 07/15 D/C to SNF or return to Date Signed: 07/14/2017 05:00 PM Electronically Signed By:Guerline Armando [facility] CM Progress Note CM Note CM Note Notes: PT/OT continue to rec SNF. Pt son will tour [facility] and [facility] today and let CM know SNF choice. Some family is somewhat hesitant about SNF as a family member recently at [facility]. Since [facility] and [facility] are rehab only these may be the best options for SNF. CM to follow. Date Signed: 07/15/2017 02:48 PM Electronically Signed By:DINO Keith [facility] Progress Note CM Note CM Note Notes: Pt medically stable for d/c to [facility] yesterday, orders sent in [employer]. PB scheduled wc transport. Date Signed: 07/17/2017 09:21 AM Electronically Signed By:DINO Keith Intervention Information Intervention Type:*IM-Signed Date of Service:07/16/2017 04:53 PM Patient Type:Inpatient Staff Member:Cheryl Menendez Hours: Discipline: Severity: Comment:
== END 2017-07-16 17:57 | DRG 293 ==
LOC: OBSVTOIN 21:28 → F3N 23:14
PROVIDERS: ADMIT Hospitalist; ATTEND Hospitalist
DX: I11.0 Hypertensive heart disease with heart failure (principal); I50.23 Acute on chronic systolic (congestive) heart failure; R29.6 Repeated falls; D64.9 Anemia, unspecified; S91.002A Unspecified open wound, left ankle, initial encounter; S81.801A Unspecified open wound, right lower leg, initial encounter; E78.5 Hyperlipidemia, unspecified; F10.20 Alcohol dependence, uncomplicated; N40.0 Benign prostatic hyperplasia without lower urinary tract symptoms; G62.9 Polyneuropathy, unspecified; R39.15 Urgency of urination; D47.3 Essential (hemorrhagic) thrombocythemia; I48.91 Unspecified atrial fibrillation; I25.10 Atherosclerotic heart disease of native coronary artery without angina pectoris; Z95.1 Presence of aortocoronary bypass graft; Z96.659 Presence of unspecified artificial knee joint; Z86.73 Personal history of transient ischemic attack (TIA), and cerebral infarction without residual deficits; Z79.01 Long term (current) use of anticoagulants; Z87.891 Personal history of nicotine dependence
CPT/HCPCS: 97110-GP; 97116-GP; 97161-GP; 97166-GO; 97530-GO; 97535-GO; G0378; G8978-GP-CK; G8979-GP-CJ; G8987-GO-CK; G8988-GO-CI; G8989-GO-CJ; J1940; J3475

== ENCOUNTER → 2017-07-12 | Outpatient (CLI) | payer OTHER | LOC: FIMAGING 12:54 | PROVIDERS: ATTEND Specialist | DX: Z13.83 Encounter for screening for respiratory disorder NEC (principal); J98.8 Other specified respiratory disorders; I51.7 Cardiomegaly ==

== ENCOUNTER 2017-09-15 16:35 | Emergency (ER) | payer OTHER ==
--- NOTE | 2017-09-15 17:41 | EDPHY ---
HPI/HX/ROS/PE/MDM Narrative: CHIEF COMPLAINT: "Got that rash here" HPI: The patient is an 89 y/o male with cardiac disease history arriving with his for evaluation of a rash on his chest that first appeared 5 days ago. He had a "[employer] Biosensor" sticker monitor applied to his chest 3 weeks ago while at a nursing facility and it was removed 2 weeks ago. His does not believe anything else has been on his skin in the last 2 weeks. The rash has slowly spread from his chest towards his neck and abdomen. He has no known allergies and has never had a rash like this before except maybe once as a child , but he is unable to provide further details on this. The rash is pruritic, but it "chinchilla more than itches." He denies fever or any other complaints. The patient and his are poor historians. REVIEW OF SYSTEMS: Aside from elements discussed in the HPI, a comprehensive 10-point review of systems was reviewed and is negative. PMH: 1. CAD status post CABG x5 2. TIA 3. Atrial fibrillation on Eliquis 4. Essential thrombocytopenia 5. Alcohol abuse 6. Benign essential hypertension 7. BPH 8. Hyperlipidemia SOCIAL HISTORY: at bedside. Former smoker. Alcohol use. Healthcare Educator: Dr. Jansen Prior medical reviewed including admission 07/12/17 for weakness and falls. PHYSICAL EXAM: General:Patient is alert, in no acute distress. ENT:Eyes are normal to inspection. ENT inspection normal. Neck: Normal inspection. Full range of motion. Respiratory:No respiratory distress. Breath sounds normal bilaterally. Cardiovascular: Regular rate and rhythm. Strong peripheral pulses. Normal cap refill. Abdomen:The abdomen is nontender to palpation. There are no peritoneal signs. Back: Normal to inspection. No tenderness to palpation. Skin: Normal color. Large area of erythema on left chest extending approximately 8cm inferior to the nipple, somewhat patchy along the edges, no obvious urticaria, no fluctuance. Warm and dry. Extremities: Bilateral pedal edema, both lower legs wrapped in bandages. Otherwise normal appearance. Full range of motion. Neuro: Oriented x3. Normal motor function. Normal sensory function. ED Course: This is an 89 y/o male with cardiac history who presents with a 5-day history of a pruritic and "burning" rash that appeared sometime between 1-2 weeks after he had a sticker monitor applied to the same area. He and his are poor historians, limiting available history. He has a large area of erythema along his left chest extending approximately 8cm inferior to the nipple that appears to be a contact dermatitis. Plan for basic labs. Chest x-ray: nothing acute Consulted with Dr. De, hospitalist service. He agrees this appears more like a contact dermatitis than cellulitic. Patient will be discharged home with topical steroid cream and referral to his PCP for follow up. Return precautions discussed. MDM: This patient elderly patient with multiple co-morbidities presents with an erythematous rash on his left chest wall that seems likely related to his recent use of an adhesed laboratory monitor to that site. Appearance suggests a contact dermatitis rather than cellulitis, and the distribution and appearance is not consistent with zoster. The only issue is that the timing of symptom onset seems atypical. Patient and swear that the monitor and all associated skin studio assistant and adhesives have been off the chest for at least two weeks, yet rash appeared only 4-5 days ago and continues to spread. One would expect that this should have begun much earlier, while monitor was in place. Patient and are both rather poor historians, however, so I suspect their timeline might be somewhat suspect. The worst case scenario here would represent cellulitis, but given appearance and negative WBC as well as lack of fevers, I suspect this is highly unlikely. If this were cellulitis or other infection, the patient would certainly require admission to the hospital, so I consulted Dr. De from the Hospitalist service who examined patient at bedside with me. We both agree that cellulitis is very unlikely and developed a plan with the patient and his family to try a steroid cream and follow-up closely with his PCP. - Data Points Imaging Results: Imaging Impressions Chest X-Ray 09/15/17 18:55 Impression: No acute findings in the chest. Imaging: I viewed and interpreted images myself Laboratory Results: Laboratory Results 09/15/17 17:50 09/15/17 17:50 09/15/17 09/15/17 17:50 17:50 WBC 7.18 10^3/uL 10^3/uL (3.80-9.50) RBC 3.38 10^6/uL L 10^6/uL (4.40-6.38) Hgb 11.4 g/dL L g/dL (13.7-17.5) Hct 35.3 % L % (40.0-51.0) MCV 104.4 fL H fL (81.5-99.8) MCH 33.7 pg pg (27.9-34.1) MCHC 32.3 g/dL L g/dL (32.4-36.7) RDW 17.9 % H % (11.5-15.2) Plt Count 760 10^3/uL H 10^3/uL (150-400) MPV 10.9 fL fL (8.7-11.7) Neut % (Auto) 68.7 % % (39.3-74.2) Lymph % (Auto) 16.7 % % (15.0-45.0) [place] % (Auto) 8.4 % % (4.5-13.0) Eos % (Auto) 3.8 % % (0.6-7.6) Baso % (Auto) 2.1 % H % (0.3-1.7) Nucleat RBC Rel Count 0.3 % H % (0.0-0.2) Absolute Neuts (auto) 4.94 10^3/uL 10^3/uL (1.70-6.50) Absolute Lymphs (auto) 1.20 10^3/uL 10^3/uL (1.00-3.00) Absolute Monos (auto) 0.60 10^3/uL 10^3/uL (0.30-0.80) Absolute Eos (auto) 0.27 10^3/uL 10^3/uL (0.03-0.40) Absolute Basos (auto) 0.15 10^3/uL H 10^3/uL (0.02-0.10) Absolute Nucleated RBC 0.02 10^3/uL H 10^3/uL (0-0.01) Immature Gran % 0.3 % % (0.0-1.1) Immature Gran # 0.02 10^3/uL 10^3/uL (0.00-0.10) Platelet Estimate INCREASED H (ADEQ) Hypochromasia 1+ H Microcytic Cells 2+ H Oval Macrocytes 2+ H Elliptocytes 1+ H Sodium 140 mEq/L mEq/L (135-145) Potassium 4.6 mEq/L mEq/L (3.3-5.0) Chloride 103 mEq/L mEq/L (97-110) Carbon Dioxide 26 mEq/l mEq/l (22-31) Anion Gap 11 mEq/L mEq/L (8-16) BUN 29 mg/dL H mg/dL (7-23) Creatinine 1.2 mg/dL mg/dL (0.7-1.3) Estimated GFR 57 Glucose 117 mg/dL H mg/dL (70-100) Calcium 9.0 mg/dL mg/dL (8.5-10.4) General Time Seen by Provider: 09/15/17 17:15 Initial Vital Signs: Initial Vital Signs Temperature (C) 37.0 C 09/15/17 16:41 Heart Rate 87 09/15/17 16:41 Respiratory Rate 18 09/15/17 16:41 Blood Pressure 119/76 09/15/17 16:41 O2 Sat (%) 97 09/15/17 16:41 O2 Delivery Mode Room Air Allergies/Adverse Reactions: No Known Allergies Allergy (Verified 07/11/17 23:34) Home Medications: Medication Instructions Recorded Apixaban [Eliquis] 5 mg PO BID 04/10/17 Atorvastatin Calcium [Lipitor 40 40 mg PO DAILY 04/10/17 mg (*)] Hydroxyurea [Hydrea 500 mg (*)] 1,000 mg PO DAILY 04/10/17 Metoprolol Tartrate [Lopressor 25 12.5 mg PO DAILY 04/10/17 mg (*)] Nitroglycerin [Nitrostat 0.4 mg 0.4 mg SL Q5M PRN 04/10/17 (*)] Oxybutynin Chloride [OXYBUTYNIN 15 mg PO DAILY 04/10/17 CHLORIDE ER] Ramipril [Altace 5mg (*)] 10 mg PO BID 04/10/17 Tamsulosin HCl [Flomax 0.4 MG (*)] 0.4 mg PO DAILY 04/10/17 Furosemide [Lasix 40 MG (*)] 40 mg PO DAILY #30 tab 06/15/17 Herbals/Supplements -Info Only 1 ea PO DAILY 07/12/17 Departure - Departure Disposition: Home, Routine, Self-Care Clinical Impression: Dermatitis Condition: Good Instructions: Hydrocortisone (On the skin), Dermatitis (ED) Additional Instructions: 1. Apply cream topically as directed twice daily. 2. Follow up with your primary care provider for reassessment within 48 hours. 3. Return to the ED for worsening of rash, pain, development of fever, or other worsening of condition. Referrals: ANN MARIE DO [Primary Care Provider] - As per Instructions Report Scribed for: Jeevan Mclaughlin Report Scribed by: Shakira Barros Date of Report: 09/15/17 Time of Report: 17:49 Physician Review and Approval Statement: Portions of this note were transcribed by an ED scribe. I personally performed the history, physical exam, and medical decision making; and confirm the accuracy of the information in the transcribed note.
[2017-09-15 18:03] LABS: PLATELET COUNT 760 10^3/uL (150-400)
[2017-09-15 20:12] VITALS: BP 131/76
[2017-09-15] MEDS ORDERED: HYDROCORTISONE 1% CREAM TP ONE (20:20)
== END 2017-09-15 20:35 | disposition home or self-care (01) ==
DX: L30.9 Dermatitis, unspecified (principal); I25.810 Atherosclerosis of coronary artery bypass graft(s) without angina pectoris; I10 Essential (primary) hypertension; Z79.01 Long term (current) use of anticoagulants; Z87.891 Personal history of nicotine dependence